=== PATIENT | male | born 1955 | race Caucasian/White ===

== ENCOUNTER 2018-01-01 08:34 | Inpatient (IN) | payer MEDICARE, MEDICAID ==
[~2018-01-01] VITALS: Ht 165.1 cm; Wt 60.0 kg
[~2018-01-01 08:34] MED LIST: DOCU-28 PO; POLY119P2 PO; TOPI200T16 PO; [UNRECOGNIZED DRUG - CODE] PO
[2018-01-01] MEDS ORDERED: LORazepam 2 mg/ml vial ONE (08:51)
[2018-01-01] MEDS ORDERED: normal saline 1000ML IV soln IVB ONE (08:55)
[2018-01-01] MEDS ORDERED: LORazepam 2 mg/ml vial IV ONE (08:55)
[2018-01-01 09:13] LABS: BASOPHILS % (AUTO) 0.2 % (0-1); EOSINOPHILS # (AUTO) 0.1 X10'3 (0-0.9); EOSINOPHILS % (AUTO) 1.6 % (0-6); HEMATOCRIT 47.2 % (42.0-52.0); HEMOGLOBIN 16.2 g/dl (14.0-17.9); LYMPHOCYTES # (AUTO) 4.5 X10'3 (1.1-4.8); LYMPHOCYTES % (AUTO) 49.5 % (21-51); MEAN CORPUSCULAR HGB CONC 34.3 % (33.0-36.5); MEAN CORPUSCULAR VOLUME 96.4 FL (78-98); MEAN PLATELET VOLUME 8.4 FL (7.4-10.4); MONOCYTES % (AUTO) 11.2 % (2-12); NEUTROPHILS # (AUTO) 3.4 X10'3 (1.8-7.7); NEUTROPHILS % (AUTO) 37.5 % (42-75); PLATELET COUNT 146 X10'3 (140-440); RED BLOOD COUNT 4.89 X10'6 (4.70-6.10); RED CELL DISTRIBUTION WIDTH 14.4 % (11.5-14.5)
[2018-01-01 09:23] LABS: PARTIAL THROMBOPLASTIN TIME 27 SECONDS (22-32); PROTHROMBIN TIME 10.4 SECONDS (9.0-12.0)
[2018-01-01 09:28] LABS: ALANINE AMINOTRANSFERASE 50 U/L (12-78); ALBUMIN/GLOBULIN RATIO 0.8 (1.1-1.5); ALKALINE PHOSPHATASE 64 IU/L (46-116); ANION GAP 8 (8-16); ASPARTATE AMINO TRANSFERASE 28 U/L (10-37); BILIRUBIN,TOTAL 0.3 MG/DL (0.1-1.0); BLOOD UREA NITROGEN 10 MG/DL (7-18); BUN/CREATININE RATIO 12.2 (5.4-32.0); CALCIUM 8.8 MG/DL (8.5-10.1); CHLORIDE 111 MMOL/L (99-107); CREATININE 0.82 MG/DL (0.60-1.10); GLUCOSE 125 MG/DL (70-104); POTASSIUM 4.1 MMOL/L (3.5-5.1); SODIUM 145 MMOL/L (135-145); TOTAL CARBON DIOXIDE 25.9 MMOL/L (24-32); TOTAL PROTEIN 6.9 G/DL (6.4-8.2); eGFR > 90 ML/MIN
[2018-01-01] MEDS ORDERED: mag hydrox/Alum hydrox/simeth 30ml oral suspension PO PRN (10:35)
[2018-01-01] MEDS ORDERED: ondansetron/PF 4mg/2ml inj IV PRN (10:35)
[2018-01-01] MEDS ORDERED: acetaminophen 325mg tablet PO PRN (10:35)
[2018-01-01] MEDS ORDERED: LORazepam 2 mg/ml vial IV PRN (10:35)
[2018-01-01] MEDS ORDERED: magnesium hydroxide 30ml (MOM) UD suspension PO PRN (10:35)
[2018-01-01 10:56] LABS: VALPROATE 56 UG/ML (50-100)
[2018-01-01 11:00] LABS: CLARITY,URINE CLEAR (Clear); COLOR,URINE YELLOW (Yellow); GLUCOSE, URINE NEGATIVE (Neg); KETONES,URINE NEGATIVE (Neg); LEUKOCYTE ESTERASE ,URINE NEGATIVE (Neg); NITRITES, URINE NEGATIVE (Neg); OCCULT BLOOD,URINE NEGATIVE (Neg); PROTEIN,URINE NEGATIVE (Neg)
[2018-01-01 11:07] LABS: UA COLLECTION TYPE STRAIGHT CATH
[2018-01-01] MEDS: divalproex sod 125mg sprinkle cap PO SCH ×2 (14:26→20:13)
[2018-01-01] MEDS ORDERED: MORPHINE 2MG in 2ml NS syringe IV PRN (14:50)
[2018-01-01] MEDS ORDERED: morphine 4 MG/ML inj SYRINge IV PRN (19:08)
[2018-01-01] MEDS: docusate sod 100mg capsule PO SCH (20:13)
[2018-01-01] MEDS: topiramate 100mg tablet PO SCH (20:13)
[2018-01-01 22:00] VITALS: BP 120/66
[2018-01-02 05:00] VITALS: BP 114/60
[2018-01-02] MEDS: polyethylene glycol 3350 17gm powd pack PO SCH (09:00)
[2018-01-02] MEDS: docusate sod 100mg capsule PO SCH ×2 (09:00→20:48)
[2018-01-02] MEDS: divalproex sod 125mg sprinkle cap PO SCH ×3 (09:00→20:48)
[2018-01-02 10:00] VITALS: BP 127/75
[2018-01-02 14:00] VITALS: BP 112/84
[2018-01-02 18:00] VITALS: BP 99/71
[2018-01-02] MEDS: topiramate 100mg tablet PO SCH (20:47)
[2018-01-02 22:00] VITALS: BP 120/66
[2018-01-03 05:00] VITALS: BP 118/96
[2018-01-03] MEDS: polyethylene glycol 3350 17gm powd pack PO SCH (09:05)
[2018-01-03] MEDS: divalproex sod 125mg sprinkle cap PO SCH ×3 (09:05→20:36)
[2018-01-03] MEDS: docusate sod 100mg capsule PO SCH ×2 (09:06→20:36)
[2018-01-03 10:00] VITALS: BP 131/80
[2018-01-03 18:30] VITALS: BP 104/61
[2018-01-03] MEDS: topiramate 100mg tablet PO SCH (20:35)
[2018-01-03 22:00] VITALS: BP 169/65
[2018-01-04 06:00] VITALS: BP 165/69
[2018-01-04] MEDS: polyethylene glycol 3350 17gm powd pack PO SCH (07:53)
[2018-01-04] MEDS: docusate sod 100mg capsule PO SCH (07:53)
[2018-01-04] MEDS: divalproex sod 125mg sprinkle cap PO SCH ×2 (07:57→12:58)
[2018-01-04 10:00] VITALS: BP 102/70
== END 2018-01-04 16:00 | DRG 101 ==
LOC: ER 08:34 → ED HOLD 10:32 → ORTHO 4S 19:10
PROVIDERS: ADMIT Internal Medicine; ATTEND Internal Medicine
DX: G40.909 Epilepsy, unspecified, not intractable, without status epilepticus (principal); F03.90 Unspecified dementia, unspecified severity, without behavioral disturbance, psychotic disturbance, mood disturbance, and anxiety; Z98.2 Presence of cerebrospinal fluid drainage device; Z88.8 Allergy status to other drugs, medicaments and biological substances; Z79.899 Other long term (current) drug therapy; Z87.820 Personal history of traumatic brain injury
CPT/HCPCS: 36415; 70450; 71045; 80053; 80164; 81003; 82948; 85025; 85610; 85730; 87070; 93005; 95816; 96361; 96374; 97162; 97530; 99285; A4353; J2060

== ENCOUNTER 2019-08-01 13:26 | Emergency (ER) | payer MEDICARE, MEDICAID ==
[~2019-08-01] VITALS: Ht 172.7 cm; Wt 80.0 kg
[~2019-08-01 13:26] MED LIST changes: +DIVA125C2 PO; -[UNRECOGNIZED DRUG - CODE] PO
[2019-08-01 14:43] LABS: EOSINOPHILS # (AUTO) 0.1 X10'3 (0-0.9); LYMPHOCYTES # (AUTO) 4.3 X10'3 (1.1-4.8); MONOCYTES # (AUTO) 0.5 X10'3 (0-0.9); NEUTROPHILS % (AUTO) 35.9 % (42-75); RED BLOOD COUNT 4.78 X10'6 (4.70-6.10); WHITE BLOOD COUNT 7.7 X10'3 (4.5-11.0)
[2019-08-01 14:45] LABS: BASOPHILS % (AUTO) 0.5 % (0-1); EOSINOPHILS % (AUTO) 1.1 % (0-6); HEMATOCRIT 44.9 % (42.0-52.0); HEMOGLOBIN 14.8 g/dl (14.0-17.9); MEAN CORPUSCULAR VOLUME 93.8 FL (78-98); MEAN PLATELET VOLUME 10.4 FL (7.4-10.4); MONOCYTES % (AUTO) 6.5 % (2-12); NEUTROPHILS # (AUTO) 2.7 X10'3 (1.8-7.7); PLATELET COUNT 183 X10'3 (140-440); RED CELL DISTRIBUTION WIDTH 14.1 % (11.5-14.5)
[2019-08-01 14:50] LABS: PARTIAL THROMBOPLASTIN TIME 25 SECONDS (22-32)
[2019-08-01 14:54] LABS: ALANINE AMINOTRANSFERASE 22 U/L (12-78); ALBUMIN 3.5 G/DL (3.4-5.0); ALKALINE PHOSPHATASE 102 IU/L (46-116); ANION GAP 10 (8-16); ASPARTATE AMINO TRANSFERASE 6 U/L (10-37); BILIRUBIN,TOTAL 0.3 MG/DL (0.1-1.0); BLOOD UREA NITROGEN 12 MG/DL (7-18); BUN/CREATININE RATIO 12.4 (5.4-32.0); CALCIUM 9.1 MG/DL (8.5-10.1); CHLORIDE 107 MMOL/L (99-107); CREATININE 0.97 MG/DL (0.60-1.10); GLUCOSE 423 MG/DL (70-104); SODIUM 141 MMOL/L (135-145); TOTAL CARBON DIOXIDE 24.4 MMOL/L (24-32); TOTAL PROTEIN 7.1 G/DL (6.4-8.2); eGFR 78 ML/MIN
[2019-08-01 14:56] LABS: TROPONIN I < 0.04 NG/ML (0.0-0.05)
[2019-08-01 15:04] LABS: ETHANOL < 0.010 GM/DL (0.0-0.010); POTASSIUM 4.2 MMOL/L (3.5-5.1)
[2019-08-01 15:32] LABS: TOTAL CELLS COUNTED 100
[2019-08-01 15:33] LABS: PLATELET ESTIMATE NORMAL
[2019-08-01 15:44] LABS: CLARITY,URINE CLEAR (Clear); COLOR,URINE YELLOW (Yellow); GLUCOSE, URINE >=1000 mg/dl (Neg); KETONES,URINE TRACE mg/dl (Neg); LEUKOCYTE ESTERASE ,URINE NEGATIVE (Neg); NITRITES, URINE NEGATIVE (Neg); OCCULT BLOOD,URINE NEGATIVE (Neg); PROTEIN,URINE NEGATIVE (Neg); UROBILINOGEN,URINE 0.2 E.U/dL (0.2-1.0)
[2019-08-01 15:46] LABS: UA COLLECTION TYPE VOIDED
[2019-08-01 15:48] LABS: AMORPHOUS PHOSPHATES 1+; BACTERIA,URINE NONE SEEN /HPF (Neg); MUCUS STRANDS NONE SEEN /LPF (Neg); RBC,URINE NONE SEEN /HPF (0-2)
[2019-08-01 15:49] LABS: SQUAMOUS EPITHELIAL CELL,UR FEW /LPF (FEW); WBC,URINE NONE SEEN /HPF (0-4)
[2019-08-01 16:01] LABS: URINE AMPHETAMINE SCREEN NEGATIVE (Neg); URINE BARBITUATE SCREEN NEGATIVE (Neg); URINE BENZODIAZEPINES SCREEN NEGATIVE (Neg); URINE CANNABINOID SCREEN NEGATIVE (Neg); URINE COCAINE SCREEN NEGATIVE (Neg); URINE METHADONE SCREEN NEGATIVE (Neg); URINE OPIATE SCREEN NEGATIVE (Neg); URINE PHENCYCLIDINE SCREEN NEGATIVE (Neg)
[2019-08-01 17:22] VITALS: BP 115/68
--- NOTE | 2019-08-01 17:42 | NUR ---
ATTIMPTED TO CALL [facility] TO GIVE REPORT NO ANSWER WILL TRY AGAIN
--- NOTE | 2019-08-01 18:03 | NUR ---
REPORT CALLED TO [facility] REPORT GIVEN TO ZAIDA
== END 2019-08-01 18:21 | disposition home or self-care (01) ==
LOC: ER 13:27
DX: N43.3 Hydrocele, unspecified (principal); F03.90 Unspecified dementia, unspecified severity, without behavioral disturbance, psychotic disturbance, mood disturbance, and anxiety; Z86.69 Personal history of other diseases of the nervous system and sense organs; Z98.890 Other specified postprocedural states; Z88.8 Allergy status to other drugs, medicaments and biological substances; Z91.048 Other nonmedicinal substance allergy status; Z79.899 Other long term (current) drug therapy
CPT/HCPCS: 36415; 71045; 76870; 80053; 80305; 80320; 81001; 82140; 84484; 85025; 85610; 85730; 93005; 99284

== ENCOUNTER 2020-02-17 08:54 | Inpatient (IN) | payer MEDICARE, OTHER ==
[~2020-02-17] VITALS: Ht 172.7 cm; Wt 80.0 kg
--- NOTE | 2020-02-17 09:51 | NUR ---
PT'S SISTER CALLED WHO IS HIS CONSERITOR FOR PT'S STATUS. INFORMED THAT PT HAS TAKEN A FALL THIS MORNING WITH A POSSIBLE HIP INJURY AND THAT HE WAS CURRENTLY IN XRAY. SISTER, MIRELA, REQUESTED TO BE CALLED WITH UPDATES NEEDED. PHONE # IS IN PT DATA
--- NOTE | 2020-02-17 10:21 | NUR ---
LISY LEHMAN CALLED WITH PT UPDATE. INFORMED THAT MRI ORDERED FOR FURTHER EVALUATION.
[2020-02-17] MEDS ORDERED: acetaminophen 325mg tablet PO PRN ×2 (12:55)
[2020-02-17] MEDS ORDERED: potassium Cl 20 mEq SR tablet PO PRN ×2 (12:55)
[2020-02-17] MEDS ORDERED: magnesium Cl slow-release 64mg tablet PO PRN (12:55)
[2020-02-17] MEDS ORDERED: magnesium 4gm in 100ml NS 100 ML IV PRN (12:55)
[2020-02-17] MEDS ORDERED: morphine 2 MG/ML inj. syringe IV PRN (12:55)
[2020-02-17] MEDS ORDERED: magnesium 2GM in 50ml NS 50 ML IV PRN (12:55)
[2020-02-17] MEDS ORDERED: mag hydrox/Alum hydrox/simeth 30ml oral suspension PO PRN (12:55)
[2020-02-17] MEDS ORDERED: magnesium hydroxide 30ml (MOM) UD suspension PO PRN (12:55)
[2020-02-17] MEDS ORDERED: potassium CL 10mEq/100ml bag 100 ML IV PRN ×2 (12:55)
[2020-02-17 12:56] LABS: BASOPHILS # (AUTO) 0.1 X10'3 (0-0.2); BASOPHILS % (AUTO) 0.4 % (0-1); EOSINOPHILS # (AUTO) 0.1 X10'3 (0-0.9); EOSINOPHILS % (AUTO) 0.5 % (0-6); HEMATOCRIT 42.2 % (42.0-52.0); HEMOGLOBIN 13.7 g/dl (14.0-17.9); LYMPHOCYTES # (AUTO) 2.5 X10'3 (1.1-4.8); LYMPHOCYTES % (AUTO) 16.7 % (21-51); MEAN CORPUSCULAR HEMOGLOBIN 30.1 PG (27.0-31.0); MEAN CORPUSCULAR HGB CONC 32.5 g/dL (33.0-36.5); MEAN CORPUSCULAR VOLUME 92.7 FL (78-98); MEAN PLATELET VOLUME 8.3 FL (7.4-10.4); MONOCYTES # (AUTO) 1.2 X10'3 (0-0.9); MONOCYTES % (AUTO) 7.9 % (2-12); NEUTROPHILS % (AUTO) 74.5 % (42-75); PLATELET COUNT 344 X10'3 (140-440); RED BLOOD COUNT 4.55 X10'6 (4.70-6.10); RED CELL DISTRIBUTION WIDTH 14.9 % (11.5-14.5); WHITE BLOOD COUNT 14.7 X10'3 (4.5-11.0)
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
[2020-02-17 13:15] LABS: ALANINE AMINOTRANSFERASE 16 U/L (12-78); ALBUMIN 2.5 G/DL (3.4-5.0); ALBUMIN/GLOBULIN RATIO 0.6 (1.1-1.5); ALKALINE PHOSPHATASE 55 IU/L (46-116); ANION GAP 7 (8-16); BILIRUBIN,TOTAL 0.3 MG/DL (0.1-1.0); BLOOD UREA NITROGEN 11 MG/DL (7-18); BUN/CREATININE RATIO 15.5 (5.4-32.0); CALCIUM 8.8 MG/DL (8.5-10.1); CHLORIDE 113 MMOL/L (99-107); CREATININE 0.71 MG/DL (0.60-1.10); GLUCOSE 88 MG/DL (70-104); SODIUM 146 MMOL/L (135-145); TOTAL CARBON DIOXIDE 26.5 MMOL/L (24-32); TOTAL PROTEIN 6.9 G/DL (6.4-8.2); eGFR > 90 ML/MIN
[2020-02-17 13:17] LABS: PARTIAL THROMBOPLASTIN TIME 31 SECONDS (22-32)
[2020-02-17] MEDS ORDERED: SERT100T10 PO (13:19)
[2020-02-17] MEDS ORDERED: ATOR40TA PO (13:19)
[2020-02-17] MEDS ORDERED: LEVE500T PO (13:19)
[2020-02-17] MEDS ORDERED: TOPI200T16 PO (13:19)
[2020-02-17] MEDS ORDERED: LEVO750T46 PO (13:19)
[2020-02-17] MEDS ORDERED: QUET50TA22 PO (13:19)
[2020-02-17] MEDS ORDERED: EMPA10TA PO (13:19)
[2020-02-17] MEDS ORDERED: FLO0.4C PO (13:19)
[2020-02-17 13:25] LABS: ASPARTATE AMINO TRANSFERASE 15 U/L (10-37); POTASSIUM 4.2 MMOL/L (3.5-5.1)
--- NOTE | 2020-02-17 13:51 | NUR ---
HUGH AT [facility] [id number], UPDATED HER ON THE PLAN OF CARE THIS FAR WITH PT. THAT HE WILL BE ADMITTED AND CT SHOWED PELVIC FRACTURE.
[2020-02-17] MEDS: normal saline 1000ml 1,000 ML IV SCH ×2 (14:12→21:33)
--- NOTE | 2020-02-17 14:52 | NUR ---
UNABLE TO COLLECT UA OR EKG PT BEING COMBATIVE WHEN TASKS ARE BEING PERFORMED
--- NOTE | 2020-02-17 15:54 | NUR ---
MIRELA IS SISTER [phone] , PLEASE CALL WITH UPDATES
--- NOTE | 2020-02-17 15:58 | NUR ---
TRIED TO CALL REPORT TO RN ON THE SURGICAL FLOOR, RN UNAVALIABLE WILL CALL BACK
--- NOTE | 2020-02-17 16:04 | NUR ---
Patient in room [facility]. I have received report from NATALIA NUÑEZ IN ER and had the opportunity to ask questions and assume patient care.
[2020-02-17] MEDS ORDERED: dextrose ORAL solution 15 GM/59 ML bottle PO PRN ×2 (16:15)
[2020-02-17] MEDS ORDERED: insulin Lispro (HumaLOG) vial - multi-dose SQ SCH (16:15)
[2020-02-17] MEDS ORDERED: dextrose 50%-water 50ml dispensing syringe IV PRN ×2 (16:15)
[2020-02-17] MEDS ORDERED: MESSAGE TO PHARMACY PO ONE (16:15)
[2020-02-17] MEDS ORDERED: glucagon, human recombinant 1mg kit SUBCUT PRN (16:15)
[2020-02-17 17:27] LABS: HEMOGLOBIN A1C 6.9 % (4.5-6.2)
--- NOTE | 2020-02-17 17:49 | NUR ---
PATIENT REFUSED TO HAVE BLOOD SUGAR TAKEN Addendum: 02/17/20 at 1750 by Ingrid Carey RN Amended: Links added.
[2020-02-17 18:00] VITALS: BP 126/73
--- NOTE | 2020-02-17 18:10 | NUR ---
Problems reprioritized. Patient report given, questions answered & plan of care reviewed with NATALIA SUTTON.
--- NOTE | 2020-02-17 18:35 | NUR ---
Patient in room [facility] 347. I have received report from Ingrid FISHER and had the opportunity to ask questions and assume patient care.
[2020-02-17] MEDS: K and/or MAG REPLACEMENT MC SCH (20:00)
--- NOTE | 2020-02-17 20:00 | NUR ---
Patient responds to "Sachin". Patient appears calmer, AOx1. EKG done, blood sugar checked and condom catheter placed on patient. Patient tolerated procedure well.
[2020-02-17] MEDS: QUEtiapine 25mg tablet PO SCH (20:02)
[2020-02-17] MEDS: HYDROcodone/acetaminophen 5mg/325mg tablet PO PRN (20:03)
[2020-02-17] MEDS: topiramate 100mg tablet PO SCH (20:03)
[2020-02-17] MEDS: insulin glargine (Lantus) pen - multi-dose SQ SCH (21:00)
[2020-02-17] MEDS ORDERED: temazepam 15mg capsule PO PRN (21:00)
--- NOTE | 2020-02-17 21:46 | NUR ---
Spoke with patient's Patricia (sister) [phone] who stated that she has co-conservatorship with his father Vishal for patient's medical and other needs except financial. Requested that Hospitalist calls her in the morning regarding plan of treatment. Will notify am nurse. Addendum: 02/18/20 at 0135 by Sabina Hussein RN Patient's father names Lacho and not Vishal.
[2020-02-17] MEDS: heparin, porcine 5000 units/ml vial SQ SCH (23:03)
[2020-02-18] VITALS (17 sets, daily range): BP systolic 109–142; BP diastolic 57–86
[2020-02-18] MEDS: normal saline 1000ml 1,000 ML IV SCH ×3 (00:53→21:33)
[2020-02-18] MEDS: HYDROcodone/acetaminophen 5mg/325mg tablet PO PRN (03:40)
[2020-02-18 05:53] LABS: BASOPHILS % (AUTO) 0.5 % (0-1); EOSINOPHILS # (AUTO) 0.2 X10'3 (0-0.9); EOSINOPHILS % (AUTO) 1.6 % (0-6); HEMATOCRIT 40.6 % (42.0-52.0); LYMPHOCYTES # (AUTO) 1.9 X10'3 (1.1-4.8); LYMPHOCYTES % (AUTO) 19.2 % (21-51); MEAN CORPUSCULAR HEMOGLOBIN 29.9 PG (27.0-31.0); MEAN CORPUSCULAR HGB CONC 32.1 g/dL (33.0-36.5); MEAN CORPUSCULAR VOLUME 93.1 FL (78-98); MEAN PLATELET VOLUME 8.9 FL (7.4-10.4); MONOCYTES # (AUTO) 1.1 X10'3 (0-0.9); MONOCYTES % (AUTO) 10.7 % (2-12); NEUTROPHILS # (AUTO) 6.8 X10'3 (1.8-7.7); PLATELET COUNT 315 X10'3 (140-440); RED BLOOD COUNT 4.37 X10'6 (4.70-6.10); RED CELL DISTRIBUTION WIDTH 14.6 % (11.5-14.5)
[2020-02-18 06:15] LABS: ALANINE AMINOTRANSFERASE 11 U/L (12-78); ALBUMIN 2.3 G/DL (3.4-5.0); ALBUMIN/GLOBULIN RATIO 0.6 (1.1-1.5); ALKALINE PHOSPHATASE 52 IU/L (46-116); ANION GAP 8 (8-16); ASPARTATE AMINO TRANSFERASE 10 U/L (10-37); BILIRUBIN,TOTAL 0.3 MG/DL (0.1-1.0); BLOOD UREA NITROGEN 10 MG/DL (7-18); BUN/CREATININE RATIO 15.4 (5.4-32.0); CALCIUM 8.4 MG/DL (8.5-10.1); CHLORIDE 115 MMOL/L (99-107); CREATININE 0.65 MG/DL (0.60-1.10); GLUCOSE 65 MG/DL (70-104); MAGNESIUM 2.2 MG/DL (1.5-2.4); POTASSIUM 3.4 MMOL/L (3.5-5.1); SODIUM 145 MMOL/L (135-145); TOTAL PROTEIN 6.4 G/DL (6.4-8.2); eGFR > 90 ML/MIN
--- NOTE | 2020-02-18 06:20 | NUR ---
Problems reprioritized. Patient report given, questions answered & plan of care reviewed with Susan FISHER.
--- NOTE | 2020-02-18 06:45 | NUR ---
Kiana from [facility] will fax patient's medication profile and will address to Susan FISHER.
[2020-02-18] MEDS: topiramate 100mg tablet PO SCH ×2 (08:00→20:05)
[2020-02-18] MEDS: heparin, porcine 5000 units/ml vial SQ SCH ×2 (08:00→20:00)
[2020-02-18] MEDS: K and/or MAG REPLACEMENT MC SCH ×2 (08:00→20:00)
[2020-02-18] MEDS: sertraline 50mg tablet PO SCH (08:00)
[2020-02-18] MEDS: atorvastatin 20mg tablet PO SCH (08:00)
[2020-02-18] MEDS: levetiracetam 250mg tablet PO SCH (08:00)
[2020-02-18] MEDS: QUEtiapine 25mg tablet PO SCH ×2 (08:00→20:05)
[2020-02-18] MEDS: tamsulosin 0.4mg capsule PO SCH (08:00)
[2020-02-18] MEDS: CefTRIAXone 2gm/D5W 50ml 50 ML IV SCH (08:55)
--- NOTE | 2020-02-18 10:00 | NUR ---
pt is refusing assessment. Breathing pattern appears normal, no apparent distress except for the pain in his hip from the fracture. Addendum: 02/18/20 at 1629 by Ruth Wadsworth RN Amended: Links added.
[2020-02-18] MEDS ORDERED: LORazepam 2 mg/ml vial IV PRN (10:45)
[2020-02-18] MEDS: morphine 2 MG/ML inj. syringe IV PRN ×2 (11:39→20:12)
--- NOTE | 2020-02-18 14:27 | NUR ---
Patient down to OR via gurney accompanied by x2 fabrication technician.
--- NOTE | 2020-02-18 14:39 | NUR ---
Malnutrition consult: Pt reports 2-13 lb wt loss with decreased appetite per malnutrition risk screen with RN. Pt currently documented as confused and A/O x 1 with hx dementia. Pt unable to provide any reliable hx per H&P. Pt with wt hx of 80 kg however is pt stated, current ER weight is 80 kg. Pt admit from [facility] for displaced left hip fracture s/p fall, currently NPO pending surgical treatment. Only documented decrease in muscle strength is to injured leg. Pt with no documented edema and is well developed/well nourished per ED report. Pt currently lacks a minimum of two criteria for malnutrition. Will continue to follow. Addendum: 02/18/20 at [address] Amended: Links added.
[2020-02-18] MEDS ORDERED: sevoflurane 250ml liquid IH ONE (15:02)
[2020-02-18] MEDS ORDERED: ceFAZolin 1000mg inj ONE (15:02)
[2020-02-18] MEDS ORDERED: propofol inj 20 ML IV ONE (15:06)
[2020-02-18] MEDS ORDERED: fentaNYL/PF 50MCG/1 ML 2ML syringe ONE (15:06)
[2020-02-18] MEDS ORDERED: morphine 4 MG/ML inj SYRINge IV PRN (15:45)
[2020-02-18] MEDS ORDERED: ondansetron/PF 4mg/2ml inj IV PRN (15:45)
[2020-02-18] MEDS ORDERED: ringers solution, lacted 1,000 ML IV SCH (15:45)
[2020-02-18] MEDS ORDERED: proCHLORperazine 10 MG/2 ml inj IV PRN (15:45)
[2020-02-18] MEDS ORDERED: morphine 2 MG/ML inj. syringe IV PRN (15:45)
[2020-02-18] MEDS ORDERED: meperidine/PF 25mg/ml syringe IV PRN ×3 (15:45)
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
--- NOTE | 2020-02-18 17:14 | NUR ---
PT NON-COMPLIANT W/CARE, PINCHING RN, SWEARING RIVER'S REPEATEDLY, APPEARS COMFORTABLE, Report called to receiving nurse. Transferred PT IN STABLE CONDITION via BED, NO Belongings, NURSES AIDE AT BEDSIDE TO RECEIVE PT, BLL, SIDE RAILS UP. Special Issues communicated to receiving nurse. YES. Addendum: 02/18/20 at 1730 by Sandra Dalton RN Amended: Links added.
[2020-02-18] MEDS: insulin glargine (Lantus) pen - multi-dose SQ SCH (20:16)
[2020-02-19] VITALS: BP 134/67
[2020-02-19] MEDS ORDERED: cefazolin/dext.iso 2gm/100ml 100 ML IV SCH
[2020-02-19] MEDS: morphine 2 MG/ML inj. syringe IV PRN ×3 (02:56→22:01)
[2020-02-19 05:02] LABS: BASOPHILS % (AUTO) 0.4 % (0-1); EOSINOPHILS # (AUTO) 0.2 X10'3 (0-0.9); EOSINOPHILS % (AUTO) 1.7 % (0-6); HEMATOCRIT 37.1 % (42.0-52.0); LYMPHOCYTES # (AUTO) 1.9 X10'3 (1.1-4.8); LYMPHOCYTES % (AUTO) 17.8 % (21-51); MEAN CORPUSCULAR HEMOGLOBIN 30.3 PG (27.0-31.0); MEAN CORPUSCULAR HGB CONC 32.3 g/dL (33.0-36.5); MEAN CORPUSCULAR VOLUME 93.6 FL (78-98); MEAN PLATELET VOLUME 8.8 FL (7.4-10.4); MONOCYTES # (AUTO) 1.2 X10'3 (0-0.9); MONOCYTES % (AUTO) 11.3 % (2-12); NEUTROPHILS # (AUTO) 7.1 X10'3 (1.8-7.7); NEUTROPHILS % (AUTO) 68.8 % (42-75); PLATELET COUNT 315 X10'3 (140-440); RED BLOOD COUNT 3.96 X10'6 (4.70-6.10); RED CELL DISTRIBUTION WIDTH 14.7 % (11.5-14.5); WHITE BLOOD COUNT 10.4 X10'3 (4.5-11.0)
[2020-02-19 05:29] LABS: ALANINE AMINOTRANSFERASE 8 U/L (12-78); ALBUMIN 2.1 G/DL (3.4-5.0); ALBUMIN/GLOBULIN RATIO 0.5 (1.1-1.5); ALKALINE PHOSPHATASE 45 IU/L (46-116); ANION GAP 15 (8-16); ASPARTATE AMINO TRANSFERASE 11 U/L (10-37); BILIRUBIN,TOTAL 0.3 MG/DL (0.1-1.0); BLOOD UREA NITROGEN 9 MG/DL (7-18); BUN/CREATININE RATIO 13.6 (5.4-32.0); CALCIUM 8.3 MG/DL (8.5-10.1); CHLORIDE 110 MMOL/L (99-107); CREATININE 0.66 MG/DL (0.60-1.10); GLUCOSE 68 MG/DL (70-104); POTASSIUM 3.8 MMOL/L (3.5-5.1); SODIUM 142 MMOL/L (135-145); TOTAL CARBON DIOXIDE 16.7 MMOL/L (24-32); eGFR > 90 ML/MIN
[2020-02-19] MEDS: normal saline 1000ml 1,000 ML IV SCH ×3 (05:33→22:23)
--- NOTE | 2020-02-19 06:00 | NUR ---
Patient in room [facility] 347. I have received report from NATALIA Jean-Baptiste and had the opportunity to ask questions and assume patient care.
[2020-02-19 07:00] VITALS: BP 129/67
[2020-02-19] MEDS: CefTRIAXone 2gm/D5W 50ml 50 ML IV SCH (07:21)
[2020-02-19] MEDS: heparin, porcine 5000 units/ml vial SQ SCH ×3 (08:00→19:26)
[2020-02-19] MEDS: K and/or MAG REPLACEMENT MC SCH ×2 (08:00→19:27)
[2020-02-19 08:28] VITALS: BP 96/71
[2020-02-19] MEDS: topiramate 100mg tablet PO SCH ×2 (08:34→19:19)
[2020-02-19] MEDS: levetiracetam 250mg tablet PO SCH (08:35)
[2020-02-19] MEDS: QUEtiapine 25mg tablet PO SCH ×2 (08:36→19:18)
[2020-02-19] MEDS: atorvastatin 20mg tablet PO SCH (08:36)
[2020-02-19] MEDS: tamsulosin 0.4mg capsule PO SCH (08:36)
[2020-02-19] MEDS: sertraline 50mg tablet PO SCH (08:36)
[2020-02-19 11:00] VITALS: BP 122/68
[2020-02-19] MEDS: enoxaparin 40mg/0.4ml syringe SUBCUT SCH (13:23)
[2020-02-19] MEDS ORDERED: magnesium hydroxide 30ml (MOM) UD suspension PO PRN (16:20)
--- NOTE | 2020-02-19 18:00 | NUR ---
Problems reprioritized. Patient report given, questions answered & plan of care reviewed with NATALIA Jean-Baptiste.
[2020-02-19] MEDS: docusate sod 100mg capsule PO SCH (19:18)
[2020-02-19] MEDS: lactobacillus rhamnosus 10,000 MMU CELLS/CAPSULE PO SCH (19:19)
[2020-02-19 19:58] VITALS: BP 126/77
--- NOTE | 2020-02-19 19:59 | NUR ---
adiel hill Addendum: 02/19/20 at 2000 by Turner Maldonado RN Amended: Links added.
[2020-02-19] MEDS: insulin glargine (Lantus) pen - multi-dose SQ SCH (21:00)
--- NOTE | 2020-02-20 00:06 | NUR ---
Problems reprioritized. Patient report given, questions answered & plan of care reviewed with Scott FISHER.
--- NOTE | 2020-02-20 00:25 | NUR ---
Patient in room [facility] 347. I have received report from ELVA FISHER and had the opportunity to ask questions and assume patient care.
[2020-02-20] MEDS: morphine 2 MG/ML inj. syringe IV PRN (04:33)
[2020-02-20] MEDS: normal saline 1000ml 1,000 ML IV SCH (05:40)
--- NOTE | 2020-02-20 06:30 | NUR ---
Problems reprioritized. Patient report given, questions answered & plan of care reviewed with CLEMENTE FISHER.
--- NOTE | 2020-02-20 06:41 | NUR ---
Patient in room [facility] 347. I have received report from yolanda sainz and had the opportunity to ask questions and assume patient care.
[2020-02-20 07:00] VITALS: BP 146/84
[2020-02-20 07:00] LABS: BASOPHILS % (AUTO) 0.5 % (0-1); EOSINOPHILS # (AUTO) 0.1 X10'3 (0-0.9); EOSINOPHILS % (AUTO) 1.3 % (0-6); HEMATOCRIT 36.1 % (42.0-52.0); HEMOGLOBIN 11.7 g/dl (14.0-17.9); LYMPHOCYTES # (AUTO) 1.8 X10'3 (1.1-4.8); LYMPHOCYTES % (AUTO) 19.4 % (21-51); MEAN CORPUSCULAR HEMOGLOBIN 30.6 PG (27.0-31.0); MEAN CORPUSCULAR HGB CONC 32.5 g/dL (33.0-36.5); MEAN CORPUSCULAR VOLUME 94.1 FL (78-98); MEAN PLATELET VOLUME 9.1 FL (7.4-10.4); MONOCYTES # (AUTO) 1.2 X10'3 (0-0.9); MONOCYTES % (AUTO) 12.9 % (2-12); NEUTROPHILS # (AUTO) 6.1 X10'3 (1.8-7.7); NEUTROPHILS % (AUTO) 65.9 % (42-75); PLATELET COUNT 278 X10'3 (140-440); RED BLOOD COUNT 3.84 X10'6 (4.70-6.10); RED CELL DISTRIBUTION WIDTH 14.8 % (11.5-14.5); WHITE BLOOD COUNT 9.2 X10'3 (4.5-11.0)
[2020-02-20 07:14] LABS: GLUCOSE 134 MG/DL (70-104); POTASSIUM 3.4 MMOL/L (3.5-5.1); SODIUM 143 MMOL/L (135-145)
[2020-02-20 07:15] LABS: ALANINE AMINOTRANSFERASE 9 U/L (12-78); ALBUMIN/GLOBULIN RATIO 0.5 (1.1-1.5); ALKALINE PHOSPHATASE 44 IU/L (46-116); ANION GAP 10 (8-16); ASPARTATE AMINO TRANSFERASE 9 U/L (10-37); BILIRUBIN,TOTAL 0.2 MG/DL (0.1-1.0); BLOOD UREA NITROGEN 8 MG/DL (7-18); BUN/CREATININE RATIO 13.3 (5.4-32.0); CALCIUM 8.3 MG/DL (8.5-10.1); CHLORIDE 114 MMOL/L (99-107); MAGNESIUM 2.3 MG/DL (1.5-2.4); TOTAL CARBON DIOXIDE 19.2 MMOL/L (24-32); TOTAL PROTEIN 5.9 G/DL (6.4-8.2); eGFR > 90 ML/MIN
[2020-02-20] MEDS: heparin, porcine 5000 units/ml vial SQ SCH ×2 (08:00→18:46)
[2020-02-20] MEDS: K and/or MAG REPLACEMENT MC SCH ×2 (08:00→19:29)
[2020-02-20] MEDS: QUEtiapine 25mg tablet PO SCH ×2 (08:40→19:28)
[2020-02-20] MEDS: atorvastatin 20mg tablet PO SCH (08:40)
[2020-02-20] MEDS: CefTRIAXone 2gm/D5W 50ml 50 ML IV SCH (08:40)
[2020-02-20] MEDS: docusate sod 100mg capsule PO SCH ×2 (08:40→19:28)
[2020-02-20] MEDS: tamsulosin 0.4mg capsule PO SCH (08:41)
[2020-02-20] MEDS: topiramate 100mg tablet PO SCH ×2 (08:41→19:28)
[2020-02-20] MEDS: sertraline 50mg tablet PO SCH (08:41)
[2020-02-20] MEDS: levetiracetam 250mg tablet PO SCH (08:41)
[2020-02-20] MEDS: lactobacillus rhamnosus 10,000 MMU CELLS/CAPSULE PO SCH ×2 (08:41→19:28)
[2020-02-20] MEDS: enoxaparin 40mg/0.4ml syringe SUBCUT SCH (08:42)
[2020-02-20] MEDS ORDERED: potassium Cl 20 mEq SR tablet PO STA (10:52)
--- NOTE | 2020-02-20 18:53 | NUR ---
PATIENT RESISTANT TO CARE MOST OF SHIFT, CONTINUES WITH UNCOUTH LANGUAGE PATIENT HAD TBI. ALL CARES GIVEN. PATIENT PULLED OUT IV. ORDER FROM DR GALLARDO TO NOT REPLACE. PATIENT IS TO GO TO TCU IN AM AT [facility]..
--- NOTE | 2020-02-20 18:56 | NUR ---
Problems reprioritized. Patient report given, questions answered & plan of care reviewed with JESSICA FISHER.
[2020-02-20] MEDS: insulin glargine (Lantus) pen - multi-dose SQ SCH (19:29)
--- NOTE | 2020-02-20 20:19 | NUR ---
Patient in room [facility] 347. I have received report from NATALIA Prabhakar and had the opportunity to ask questions and assume patient care. Addendum: 02/20/20 at 2020 by Lyndsay Donaldson RN Amended: Links added.
--- NOTE | 2020-02-20 20:26 | NUR ---
pt refused to have vitals taken Addendum: 02/20/20 at 2025 by Lyndsay Donaldson RN Amended: Links added.
[2020-02-20] MEDS: HYDROcodone/acetaminophen 10/325mg tab PO PRN (22:30)
--- NOTE | 2020-02-20 23:58 | NUR ---
pt. refused to have vitals taken Addendum: 02/20/20 at 7268 by Lyndsay Donaldson RN Amended: Links added.
[2020-02-21] MEDS: HYDROcodone/acetaminophen 10/325mg tab PO PRN ×2 (04:40→19:32)
--- NOTE | 2020-02-21 05:18 | NUR ---
pt refused to have labs drawn this am.
--- NOTE | 2020-02-21 06:07 | NUR ---
Problems reprioritized. Patient report given, questions answered & plan of care reviewed with NATALIA Quintero. Addendum: 02/21/20 at 0607 by Lyndsay Donaldson RN Amended: Links added.
--- NOTE | 2020-02-21 06:50 | NUR ---
Patient in room [facility] 347. I have received report from NATALIA IL and had the opportunity to ask questions and assume patient care.
[2020-02-21 08:00] VITALS: BP 134/77
[2020-02-21] MEDS: K and/or MAG REPLACEMENT MC SCH ×2 (08:00→20:00)
[2020-02-21] MEDS: heparin, porcine 5000 units/ml vial SQ SCH (08:00)
[2020-02-21] MEDS: enoxaparin 40mg/0.4ml syringe SUBCUT SCH (09:51)
[2020-02-21] MEDS: atorvastatin 20mg tablet PO SCH (09:51)
[2020-02-21] MEDS: tamsulosin 0.4mg capsule PO SCH (09:52)
[2020-02-21] MEDS: topiramate 100mg tablet PO SCH ×2 (09:52→19:32)
[2020-02-21] MEDS: sertraline 50mg tablet PO SCH (09:52)
[2020-02-21] MEDS: levetiracetam 250mg tablet PO SCH (09:52)
[2020-02-21] MEDS: lactobacillus rhamnosus 10,000 MMU CELLS/CAPSULE PO SCH ×2 (09:52→19:32)
[2020-02-21] MEDS: docusate sod 100mg capsule PO SCH ×2 (09:52→19:32)
[2020-02-21] MEDS: QUEtiapine 25mg tablet PO SCH ×2 (09:52→19:32)
[2020-02-21 11:00] VITALS: BP 99/70
--- NOTE | 2020-02-21 18:18 | NUR ---
Problems reprioritized. Patient report given, questions answered & plan of care reviewed with NATALIA LI.
[2020-02-21 20:00] VITALS: BP 132/72
[2020-02-21] MEDS: insulin glargine (Lantus) pen - multi-dose SQ SCH (21:00)
--- NOTE | 2020-02-21 21:34 | NUR ---
Patient in room [facility] 347. I have received report from NATALIA Quintero and had the opportunity to ask questions and assume patient care. Addendum: 02/21/20 at 2139 by Lyndsay Donaldson RN Amended: Links added.
--- NOTE | 2020-02-21 22:03 | NUR ---
vladislav pain scale. Addendum: 02/21/20 at 2204 by Lyndsay Donaldson RN Amended: Links added.
[2020-02-22 00:25] VITALS: BP 126/57
--- NOTE | 2020-02-22 04:39 | NUR ---
pt refused to have labs taken
[2020-02-22] MEDS: HYDROcodone/acetaminophen 10/325mg tab PO PRN ×3 (05:03→20:55)
--- NOTE | 2020-02-22 06:12 | NUR ---
Problems reprioritized. Patient report given, questions answered & plan of care reviewed with NATALIA Mcnamara. Addendum: 02/22/20 at 0612 by Lyndsay Donaldson RN Amended: Links added.
--- NOTE | 2020-02-22 06:36 | NUR ---
Patient in room [facility] 347. I have received report from NATALIA Umana and had the opportunity to ask questions and assume patient care.
[2020-02-22] MEDS: K and/or MAG REPLACEMENT MC SCH ×2 (08:00→20:00)
[2020-02-22] MEDS: tamsulosin 0.4mg capsule PO SCH (09:16)
[2020-02-22] MEDS: atorvastatin 20mg tablet PO SCH (09:17)
[2020-02-22] MEDS: levetiracetam 250mg tablet PO SCH (09:17)
[2020-02-22] MEDS: topiramate 100mg tablet PO SCH ×2 (09:17→20:55)
[2020-02-22] MEDS: lactobacillus rhamnosus 10,000 MMU CELLS/CAPSULE PO SCH ×2 (09:17→20:55)
[2020-02-22] MEDS: docusate sod 100mg capsule PO SCH ×2 (09:17→20:55)
[2020-02-22] MEDS: sertraline 50mg tablet PO SCH (09:18)
[2020-02-22] MEDS: QUEtiapine 25mg tablet PO SCH ×2 (09:18→20:54)
[2020-02-22] MEDS: enoxaparin 40mg/0.4ml syringe SUBCUT SCH (09:23)
[2020-02-22 11:00] VITALS: BP 113/71
--- NOTE | 2020-02-22 11:01 | NUR ---
Initial: Pt admit from [facility] for displaced left hip fracture s/p fall, pt now s/p surgical treatment. Pt on a regular diet with fluctuating PO intake, initially with 100% PO intake with steady trend down to 75% then 50% PO intake, however back up to 100% PO intake at dinner last night. Noted that pt documented to be resistive to care at times per RN notes. [facility] 02/20. Will continue to follow and monitor need for nutrition intervention. Recommendations: 1) Continue regular diet 2) Monitor BG levels and need for CHO controlled diet, currently well controlled 3) Monitor need for ONS/additional protein 4) Routine bowel care 5) Scaled wts per rx Addendum: 02/22/20 at [address] Amended: Links added.
[2020-02-22] MEDS ORDERED: diphenhydrAMINE 25mg capsule PO PRN (11:05)
--- NOTE | 2020-02-22 12:31 | NUR ---
Pt has D/C orders to be transfer to [facility]. application manager informed [facility] has refused pt at this time.
--- NOTE | 2020-02-22 18:53 | NUR ---
Problems reprioritized. Patient report given, questions answered & plan of care reviewed with NATALIA Sheehan. Pt. refused 1800 blood sugar check.
[2020-02-22 20:00] VITALS: BP 125/74
[2020-02-22] MEDS: insulin glargine (Lantus) pen - multi-dose SQ SCH (21:00)
--- NOTE | 2020-02-22 21:02 | NUR ---
pt refused finger stick for glucose check.
--- NOTE | 2020-02-22 21:29 | NUR ---
reported to NATALIA Herrera. pt took pm meds with ice cream.
--- NOTE | 2020-02-22 21:30 | NUR ---
Patient in room [facility]. I have received report from NATALIA Lehman and had the opportunity to ask questions and assume patient care.
--- NOTE | 2020-02-22 22:29 | NUR ---
Dressing to left hip changed; prior dressing was falling off. Patient tolerated well. Turned for skin check. Back side clear.
[2020-02-23] VITALS: BP 128/59
[2020-02-23] MEDS: HYDROcodone/acetaminophen 10/325mg tab PO PRN ×2 (02:14→14:44)
--- NOTE | 2020-02-23 04:43 | NUR ---
Patient refused labs
--- NOTE | 2020-02-23 06:00 | NUR ---
Patient in room [facility] 347. I have received report from Sharon FISHER and had the opportunity to ask questions and assume patient care.
--- NOTE | 2020-02-23 06:27 | NUR ---
Problems reprioritized. Patient report given, questions answered & plan of care reviewed with NATALIA Marion.
[2020-02-23 08:00] VITALS: BP 112/78
[2020-02-23] MEDS: K and/or MAG REPLACEMENT MC SCH ×2 (08:00→20:00)
[2020-02-23] MEDS: docusate sod 100mg capsule PO SCH ×2 (08:56→19:45)
[2020-02-23] MEDS: levetiracetam 250mg tablet PO SCH (08:56)
[2020-02-23] MEDS: tamsulosin 0.4mg capsule PO SCH (08:56)
[2020-02-23] MEDS: lactobacillus rhamnosus 10,000 MMU CELLS/CAPSULE PO SCH ×2 (08:56→19:45)
[2020-02-23] MEDS: QUEtiapine 25mg tablet PO SCH ×2 (08:57→19:45)
[2020-02-23] MEDS: sertraline 50mg tablet PO SCH (08:57)
[2020-02-23] MEDS: topiramate 100mg tablet PO SCH ×2 (08:57→19:45)
[2020-02-23] MEDS: enoxaparin 40mg/0.4ml syringe SUBCUT SCH (08:57)
[2020-02-23] MEDS: atorvastatin 20mg tablet PO SCH (08:57)
--- NOTE | 2020-02-23 11:00 | NUR ---
patient refused vital signs and accucheck this AM
--- NOTE | 2020-02-23 18:08 | NUR ---
Received report from primary care nurse Sanam RN. Patient is awake and alert on room air. In no apparent distress. Call light and items of frequent use within reach. Tab alarms on and audible.
--- NOTE | 2020-02-23 18:15 | NUR ---
Patient in room [facility] 347. I have received report from Gela FISHER and had the opportunity to ask questions and assume patient care.
--- NOTE | 2020-02-23 18:21 | NUR ---
Problems reprioritized. Patient report given, questions answered & plan of care reviewed with Gela FISHER.
--- NOTE | 2020-02-23 18:35 | NUR ---
Reported off to Patricia FISHER. Patient is awake and alert. In no apparent distress. Alarms on and audible.
[2020-02-23 19:00] VITALS: BP 130/80
[2020-02-23] MEDS: insulin glargine (Lantus) pen - multi-dose SQ SCH (21:00)
--- NOTE | 2020-02-23 22:25 | NUR ---
blood glucose done twice today Addendum: 02/23/20 at 2225 by Patricia Lorenzana RN Amended: Links added.
[2020-02-24] MEDS: HYDROcodone/acetaminophen 10/325mg tab PO PRN ×2 (00:54→09:30)
--- NOTE | 2020-02-24 06:34 | NUR ---
Problems reprioritized. Patient report given, questions answered & plan of care reviewed with Susan FISHER.
[2020-02-24] MEDS: tamsulosin 0.4mg capsule PO SCH (08:00)
[2020-02-24] MEDS: levetiracetam 250mg tablet PO SCH (08:00)
[2020-02-24] MEDS: QUEtiapine 25mg tablet PO SCH ×2 (08:00→21:16)
[2020-02-24] MEDS: lactobacillus rhamnosus 10,000 MMU CELLS/CAPSULE PO SCH ×2 (08:00→21:16)
[2020-02-24] MEDS: atorvastatin 20mg tablet PO SCH (08:00)
[2020-02-24] MEDS: sertraline 50mg tablet PO SCH (08:00)
[2020-02-24] MEDS: K and/or MAG REPLACEMENT MC SCH ×2 (08:00→18:39)
[2020-02-24] MEDS: enoxaparin 40mg/0.4ml syringe SUBCUT SCH (08:00)
[2020-02-24] MEDS: docusate sod 100mg capsule PO SCH ×2 (08:00→21:16)
[2020-02-24] MEDS: topiramate 100mg tablet PO SCH ×2 (08:00→21:23)
--- NOTE | 2020-02-24 08:00 | NUR ---
pt refused vitals
--- NOTE | 2020-02-24 08:00 | NUR ---
pt refused to have blood sugar checked Addendum: 02/24/20 at 1101 by Ruth Wadsworth RN Amended: Links added.
--- NOTE | 2020-02-24 09:45 | NUR ---
meds scanned and administered at bedside, meds did not save
[2020-02-24 10:00] VITALS: BP 119/81
[2020-02-24 18:00] VITALS: BP 112/75
[2020-02-24] MEDS: insulin glargine (Lantus) pen - multi-dose SQ SCH (21:00)
--- NOTE | 2020-02-25 00:39 | NUR ---
Pt refused midnight vital signs
--- NOTE | 2020-02-25 06:45 | NUR ---
Problems reprioritized. Patient report given, questions answered & plan of care reviewed with Susan Grier RN.
[2020-02-25] MEDS: atorvastatin 20mg tablet PO SCH (07:29)
[2020-02-25] MEDS: QUEtiapine 25mg tablet PO SCH ×2 (07:30→19:04)
[2020-02-25] MEDS: rivaroxaban 10mg tablet PO SCH (07:30)
[2020-02-25] MEDS: topiramate 100mg tablet PO SCH ×2 (07:30→19:05)
[2020-02-25] MEDS: docusate sod 100mg capsule PO SCH ×2 (07:30→19:05)
[2020-02-25] MEDS: levetiracetam 250mg tablet PO SCH (07:30)
[2020-02-25] MEDS: tamsulosin 0.4mg capsule PO SCH (07:30)
[2020-02-25] MEDS: lactobacillus rhamnosus 10,000 MMU CELLS/CAPSULE PO SCH ×2 (07:30→19:05)
[2020-02-25] MEDS: sertraline 50mg tablet PO SCH (07:30)
[2020-02-25] MEDS: HYDROcodone/acetaminophen 10/325mg tab PO PRN (07:31)
[2020-02-25 08:00] VITALS: BP 128/77
[2020-02-25] MEDS: K and/or MAG REPLACEMENT MC SCH ×2 (08:00→20:00)
[2020-02-25 11:00] VITALS: BP 121/69
[2020-02-25] MEDS: HYDROcodone/acetaminophen 5mg/325mg tablet PO PRN ×2 (12:30→18:49)
[2020-02-25] MEDS: albuterol 2.5 MG/3 ML nebule NEB SCH ×2 (14:56→20:00)
--- NOTE | 2020-02-25 18:00 | NUR ---
patient refused 1800 vital signs
--- NOTE | 2020-02-25 18:20 | NUR ---
Patient in room [facility] 347. I have received report from Susan FISHER and had the opportunity to ask questions and assume patient care.
[2020-02-25] MEDS: insulin glargine (Lantus) pen - multi-dose SQ SCH (20:15)
[2020-02-26] VITALS: BP 114/71
[2020-02-26] MEDS: HYDROcodone/acetaminophen 5mg/325mg tablet PO PRN ×2 (02:38→16:02)
[2020-02-26] MEDS: albuterol 2.5 MG/3 ML nebule NEB SCH ×4 (03:27→21:17)
--- NOTE | 2020-02-26 06:14 | NUR ---
Problems reprioritized. Patient report given, questions answered & plan of care reviewed with Sanam FISHER.
--- NOTE | 2020-02-26 06:34 | NUR ---
Patient in room [facility] 347. I have received report from Diamond FISHER and had the opportunity to ask questions and assume patient care.
[2020-02-26 08:00] VITALS: BP 125/75
[2020-02-26] MEDS: K and/or MAG REPLACEMENT MC SCH ×2 (08:00→19:04)
[2020-02-26] MEDS: docusate sod 100mg capsule PO SCH ×2 (08:00→20:00)
[2020-02-26] MEDS: lactobacillus rhamnosus 10,000 MMU CELLS/CAPSULE PO SCH ×2 (08:40→20:31)
[2020-02-26] MEDS: topiramate 100mg tablet PO SCH ×2 (08:40→20:27)
[2020-02-26] MEDS: QUEtiapine 25mg tablet PO SCH ×2 (08:40→20:27)
[2020-02-26] MEDS: atorvastatin 20mg tablet PO SCH (08:40)
[2020-02-26] MEDS: sertraline 50mg tablet PO SCH (08:40)
[2020-02-26] MEDS: levetiracetam 250mg tablet PO SCH (08:40)
[2020-02-26] MEDS: HYDROcodone/acetaminophen 10/325mg tab PO PRN ×2 (08:40→21:12)
[2020-02-26] MEDS: tamsulosin 0.4mg capsule PO SCH (08:40)
[2020-02-26 11:00] VITALS: BP 121/80
[2020-02-26] MEDS: rivaroxaban 10mg tablet PO SCH (16:02)
--- NOTE | 2020-02-26 18:28 | NUR ---
Problems reprioritized. Patient report given, questions answered & plan of care reviewed with Fernanda FISHER.
[2020-02-26] MEDS: LORazepam 1 MG tablet PO PRN (20:27)
[2020-02-26 21:00] VITALS: BP 129/76
[2020-02-26] MEDS: insulin glargine (Lantus) pen - multi-dose SQ SCH (21:00)
--- NOTE | 2020-02-27 01:00 | NUR ---
Patient refused his midnight vitals to be taken.
[2020-02-27] MEDS: albuterol 2.5 MG/3 ML nebule NEB SCH ×4 (02:00→20:00)
[2020-02-27] MEDS: HYDROcodone/acetaminophen 10/325mg tab PO PRN ×4 (03:34→20:36)
--- NOTE | 2020-02-27 06:00 | NUR ---
Patient in room [facility] 347. I have received report from NATALIA Michael and had the opportunity to ask questions and assume patient care.
[2020-02-27 07:00] VITALS: BP 132/73
[2020-02-27] MEDS: docusate sod 100mg capsule PO SCH ×2 (08:00→20:35)
[2020-02-27] MEDS: K and/or MAG REPLACEMENT MC SCH ×2 (08:00→20:00)
[2020-02-27] MEDS: QUEtiapine 25mg tablet PO SCH ×2 (08:36→20:36)
[2020-02-27] MEDS: sertraline 50mg tablet PO SCH (08:37)
[2020-02-27] MEDS: levetiracetam 250mg tablet PO SCH (08:37)
[2020-02-27] MEDS: atorvastatin 20mg tablet PO SCH (08:39)
[2020-02-27] MEDS: tamsulosin 0.4mg capsule PO SCH (08:40)
[2020-02-27] MEDS: lactobacillus rhamnosus 10,000 MMU CELLS/CAPSULE PO SCH ×2 (08:40→20:35)
[2020-02-27] MEDS: topiramate 100mg tablet PO SCH ×2 (08:46→20:35)
[2020-02-27] MEDS: rivaroxaban 10mg tablet PO SCH (08:54)
[2020-02-27 11:00] VITALS: BP 141/71
--- NOTE | 2020-02-27 14:47 | NUR ---
Reassessment: Pt PO 75-100% avg majority of meals since admit meeting needs. LBM 02/25. No nutrition concerns at this time. Will continue to monitor. Recommendations: 1) Continue regular diet 2) Monitor BG levels and need for CHO controlled diet, currently well controlled 3) Routine bowel care 4) Scaled wts Addendum: 02/27/20 at [address] Amended: Links added.
--- NOTE | 2020-02-27 18:20 | NUR ---
Problems reprioritized. Patient report given, questions answered & plan of care reviewed with NATALIA Quinn.
[2020-02-27 20:00] VITALS: BP 112/78
[2020-02-27] MEDS: insulin glargine (Lantus) pen - multi-dose SQ SCH (20:37)
--- NOTE | 2020-02-27 21:28 | NUR ---
Patient in room [facility] 347. I have received report from NATALIA Boyer and had the opportunity to ask questions and assume patient care. Addendum: 02/27/20 at 2129 by Lyndsay Donaldson RN Amended: Links added.
--- NOTE | 2020-02-27 22:55 | NUR ---
vladislav pain scale. medicated for pain. pt states yes. Addendum: 02/27/20 at 2256 by Lyndsay Donaldson RN Amended: Links added.
--- NOTE | 2020-02-28 00:12 | NUR ---
pt refused to have midnight vital signs taken.
[2020-02-28] MEDS: albuterol 2.5 MG/3 ML nebule NEB SCH ×4 (02:00→20:00)
[2020-02-28] MEDS: HYDROcodone/acetaminophen 10/325mg tab PO PRN ×3 (03:56→20:57)
[2020-02-28 06:00] VITALS: BP 129/80
--- NOTE | 2020-02-28 06:16 | NUR ---
Problems reprioritized. Patient report given, questions answered & plan of care reviewed with NATALIA Fitzgerald. Addendum: 02/28/20 at 0616 by Lyndsay Donaldson RN Amended: Links added.
--- NOTE | 2020-02-28 06:34 | NUR ---
Patient in room [facility] 347. I have received report from NATALIA Quinn and had the opportunity to ask questions and assume patient care.
[2020-02-28] MEDS: K and/or MAG REPLACEMENT MC SCH ×2 (06:56→20:00)
[2020-02-28] MEDS: QUEtiapine 25mg tablet PO SCH ×2 (07:32→20:56)
[2020-02-28] MEDS: topiramate 100mg tablet PO SCH ×2 (07:32→20:57)
[2020-02-28] MEDS: sertraline 50mg tablet PO SCH (07:32)
[2020-02-28] MEDS: docusate sod 100mg capsule PO SCH ×2 (07:33→20:57)
[2020-02-28] MEDS: levetiracetam 250mg tablet PO SCH (07:33)
[2020-02-28] MEDS: atorvastatin 20mg tablet PO SCH (07:33)
[2020-02-28] MEDS: lactobacillus rhamnosus 10,000 MMU CELLS/CAPSULE PO SCH ×2 (07:33→20:57)
[2020-02-28] MEDS: tamsulosin 0.4mg capsule PO SCH (07:33)
[2020-02-28] MEDS: rivaroxaban 10mg tablet PO SCH (07:34)
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
[2020-02-28 11:00] VITALS: BP 127/72
[2020-02-28 15:04] LABS: BASOPHILS # (AUTO) 0.1 X10'3 (0-0.2); BASOPHILS % (AUTO) 0.8 % (0-1); EOSINOPHILS # (AUTO) 0.1 X10'3 (0-0.9); EOSINOPHILS % (AUTO) 1.1 % (0-6); HEMATOCRIT 40.8 % (42.0-52.0); HEMOGLOBIN 13.3 g/dl (14.0-17.9); LYMPHOCYTES # (AUTO) 2.9 X10'3 (1.1-4.8); LYMPHOCYTES % (AUTO) 32.4 % (21-51); MEAN CORPUSCULAR HEMOGLOBIN 30.3 PG (27.0-31.0); MEAN CORPUSCULAR HGB CONC 32.7 g/dL (33.0-36.5); MEAN CORPUSCULAR VOLUME 92.8 FL (78-98); MEAN PLATELET VOLUME 9.4 FL (7.4-10.4); MONOCYTES # (AUTO) 0.6 X10'3 (0-0.9); MONOCYTES % (AUTO) 6.3 % (2-12); NEUTROPHILS # (AUTO) 5.3 X10'3 (1.8-7.7); NEUTROPHILS % (AUTO) 59.4 % (42-75); PLATELET COUNT 305 X10'3 (140-440); RED CELL DISTRIBUTION WIDTH 14.7 % (11.5-14.5); WHITE BLOOD COUNT 8.9 X10'3 (4.5-11.0)
[2020-02-28 15:08] LABS: ALBUMIN 2.6 G/DL (3.4-5.0); ANION GAP 8 (8-16); BLOOD UREA NITROGEN 18 MG/DL (7-18); BUN/CREATININE RATIO 21.7 (5.4-32.0); CALCIUM 8.7 MG/DL (8.5-10.1); CHLORIDE 107 MMOL/L (99-107); CREATININE 0.83 MG/DL (0.60-1.10); GLUCOSE 212 MG/DL (70-104); SODIUM 138 MMOL/L (135-145); TOTAL CARBON DIOXIDE 22.7 MMOL/L (24-32); eGFR > 90 ML/MIN
[2020-02-28 15:15] LABS: POTASSIUM 4.1 MMOL/L (3.5-5.1)
--- NOTE | 2020-02-28 18:07 | NUR ---
Student documentation: I have reviewed and agree with all interventions, assessments performed and documented by Manuel.
--- NOTE | 2020-02-28 18:11 | NUR ---
Problems reprioritized. Patient report given, questions answered & plan of care reviewed with NATALIA Quinn.
[2020-02-28 20:00] VITALS: BP 115/72
[2020-02-28] MEDS: LORazepam 1 MG tablet PO PRN (20:57)
[2020-02-28] MEDS: insulin glargine (Lantus) pen - multi-dose SQ SCH (21:00)
--- NOTE | 2020-02-29 00:12 | NUR ---
vladislav pain scale Addendum: 02/29/20 at 0012 by Lyndsay Donaldson RN Amended: Links added.
--- NOTE | 2020-02-29 00:16 | NUR ---
Patient in room [facility] 357. I have received report from NATALIA Fitzgerald and had the opportunity to ask questions and assume patient care. Addendum: 02/29/20 at 0024 by Lyndsay Donaldson RN Amended: Links added.
[2020-02-29] MEDS: HYDROcodone/acetaminophen 10/325mg tab PO PRN ×2 (00:45→05:09)
[2020-02-29] MEDS: albuterol 2.5 MG/3 ML nebule NEB SCH ×4 (02:00→19:39)
--- NOTE | 2020-02-29 06:02 | NUR ---
Problems reprioritized. Patient report given, questions answered & plan of care reviewed with NATALIA Walker. Addendum: 02/29/20 at 0602 by Lyndsay Donaldson RN Amended: Links added.
[2020-02-29 07:00] VITALS: BP 125/84
--- NOTE | 2020-02-29 07:01 | NUR ---
Patient in room [facility] 357A. I have received report from NATALIA Roth & Nubia pablo RN and had the opportunity to ask questions and assume patient care. Addendum: 02/29/20 at 0704 by Denise Warren RN Recieved report from NATALIA Delacruz not NATALIA Roth & Student
[2020-02-29] MEDS: K and/or MAG REPLACEMENT MC SCH ×2 (07:15→20:00)
[2020-02-29] MEDS: lactobacillus rhamnosus 10,000 MMU CELLS/CAPSULE PO SCH ×2 (09:08→20:53)
[2020-02-29] MEDS: docusate sod 100mg capsule PO SCH ×2 (09:08→20:53)
[2020-02-29] MEDS: tamsulosin 0.4mg capsule PO SCH (09:09)
[2020-02-29] MEDS: levetiracetam 250mg tablet PO SCH (09:10)
[2020-02-29] MEDS: atorvastatin 20mg tablet PO SCH (09:11)
[2020-02-29] MEDS: topiramate 100mg tablet PO SCH ×2 (09:11→20:53)
[2020-02-29] MEDS: QUEtiapine 25mg tablet PO SCH ×2 (09:11→20:53)
[2020-02-29] MEDS: sertraline 50mg tablet PO SCH (09:12)
[2020-02-29] MEDS: rivaroxaban 10mg tablet PO SCH (10:34)
[2020-02-29 11:00] VITALS: BP 121/68
--- NOTE | 2020-02-29 15:40 | NUR ---
PT WAS SITTING IN BEDSIDE CHAIR, ASSISTED THERE BY PHYSICAL THERAPY. AT 1530 PT WAS SITTING IN CHAIR WITH NO PROBLEMS. AT 1540 PT WAS FOUND ON FLOOR LAYING ON RIGHT SIDE, NO BLEEDING AND NO COMPLAINTS OF PAIN. PHYSICAL THERAPY WAS CALLED TO ASSIST PT BACK TO BED. PT WAS ROLLED ON BACK ONTO A BLANKED, 4 PHYSICAL THERAPY MEN LIFTED PT BACK INTO BED. GRANT PHYSICAL THERAPIST ASSESSED PT AND SUGGESTED AN XRAY. DR OBRIEN WAS ON THE FLOOR AND ASSESSED THE PT AND STATED PT "LOOKS OK" BUT TO GET AN XRAY TO JUST CHECK. ALL 4 BED RAILS WERE RAISED BECAUSE OF THE PREVIOUS TBI, AND TABS ALARM WAS PLACED ON PT
--- NOTE | 2020-02-29 16:28 | NUR ---
Page Sent PAGER ID: [phone] MESSAGE: BEV [id number]: MISSY CURRY [id number]...PT FELL TO GROUND FROM BEDSIDE CHAIR. PHYSICAL THERAPY ASSISTED IN GETTING PT BACK TO BED, SUGGESTED X-RAY. DR OBRIEN WAS ON FLOOR AND CHECKED PT, LOOKS OK, BUT WOULD STILL GET XRAY...I ORDERED XRAY.
--- NOTE | 2020-02-29 16:46 | NUR ---
CALLED AND LEFT MSG FOR DR HOLM RE: TANNER
--- NOTE | 2020-02-29 18:03 | NUR ---
REC'D CALL FROM DR HOLM, VIEWED XRAY AND STATED NO INJURY TO PT. ADVISED WHAT HAPPENED AND NEW PRECAUTIONS IN PLACE
--- NOTE | 2020-02-29 18:36 | NUR ---
Problems reprioritized. Patient report given, questions answered & plan of care reviewed with NATALIA MARTINEZ.
--- NOTE | 2020-02-29 18:38 | NUR ---
Patient in room [facility]. I have received report from NATALIA Walker and had the opportunity to ask questions and assume patient care. Addendum: 02/29/20 at 1838 by Angi Rivas RN Amended: Links added.
[2020-02-29 20:00] VITALS: BP 113/75
[2020-02-29] MEDS: insulin glargine (Lantus) pen - multi-dose SQ SCH (21:00)
[2020-03-01] MEDS: albuterol 2.5 MG/3 ML nebule NEB SCH ×4 (02:42→19:31)
[2020-03-01] MEDS: HYDROcodone/acetaminophen 10/325mg tab PO PRN (02:59)
--- NOTE | 2020-03-01 06:35 | NUR ---
Problems reprioritized. Patient report given, questions answered & plan of care reviewed with NATALIA Garcia. Addendum: 03/01/20 at 0636 by Angi Rivas RN Amended: Links added.
[2020-03-01 08:00] VITALS: BP 132/78
[2020-03-01] MEDS: K and/or MAG REPLACEMENT MC SCH ×2 (08:00→20:00)
[2020-03-01] MEDS: tamsulosin 0.4mg capsule PO SCH (08:25)
[2020-03-01] MEDS: sertraline 50mg tablet PO SCH (08:25)
[2020-03-01] MEDS: levetiracetam 250mg tablet PO SCH (08:26)
[2020-03-01] MEDS: docusate sod 100mg capsule PO SCH ×2 (08:26→20:31)
[2020-03-01] MEDS: atorvastatin 20mg tablet PO SCH (08:26)
[2020-03-01] MEDS: lactobacillus rhamnosus 10,000 MMU CELLS/CAPSULE PO SCH ×2 (08:26→20:00)
[2020-03-01] MEDS: rivaroxaban 10mg tablet PO SCH (08:26)
[2020-03-01] MEDS: topiramate 100mg tablet PO SCH ×2 (08:26→20:30)
[2020-03-01] MEDS: QUEtiapine 25mg tablet PO SCH ×2 (08:26→20:28)
--- NOTE | 2020-03-01 08:41 | NUR ---
patient refused svn tx Addendum: 03/01/20 at 0842 by Margarita Whitmore RT Amended: Links added.
[2020-03-01 11:48] VITALS: BP 133/79
[2020-03-01] MEDS: LORazepam 1 MG tablet PO PRN (13:53)
--- NOTE | 2020-03-01 16:07 | NUR ---
patient refused svn tx Addendum: 03/01/20 at 1608 by Margarita Whitmore RT Amended: Links added.
--- NOTE | 2020-03-01 18:13 | NUR ---
Problems reprioritized. Patient report given, questions answered & plan of care reviewed with NATALIA Michael.
--- NOTE | 2020-03-01 18:15 | NUR ---
RECEIVED REPORT FROM VLADIMIR FISHER AND ASSUMED PATIENT CARE. ORIENTING DARLENE FISHER.
[2020-03-01 20:00] VITALS: BP 133/73
[2020-03-01] MEDS: insulin glargine (Lantus) pen - multi-dose SQ SCH (21:00)
[2020-03-02] VITALS: BP 124/78
[2020-03-02] MEDS: albuterol 2.5 MG/3 ML nebule NEB SCH ×3 (02:44→19:40)
[2020-03-02 06:00] VITALS: BP 143/83
--- NOTE | 2020-03-02 06:59 | NUR ---
I have received report from NEWTON and had the opportunity to ask questions and assume patient care.
[2020-03-02] MEDS: K and/or MAG REPLACEMENT MC SCH ×2 (07:05→20:00)
[2020-03-02] MEDS: levetiracetam 250mg tablet PO SCH (08:17)
[2020-03-02] MEDS: QUEtiapine 25mg tablet PO SCH ×2 (08:18→19:56)
[2020-03-02] MEDS: lactobacillus rhamnosus 10,000 MMU CELLS/CAPSULE PO SCH ×2 (08:18→19:56)
[2020-03-02] MEDS: LORazepam 1 MG tablet PO PRN ×2 (08:18→13:48)
[2020-03-02] MEDS: topiramate 100mg tablet PO SCH ×2 (08:18→19:56)
[2020-03-02] MEDS: tamsulosin 0.4mg capsule PO SCH (08:18)
[2020-03-02] MEDS: atorvastatin 20mg tablet PO SCH (08:18)
[2020-03-02] MEDS: docusate sod 100mg capsule PO SCH ×2 (08:18→19:55)
[2020-03-02] MEDS: sertraline 50mg tablet PO SCH (08:18)
[2020-03-02] MEDS: rivaroxaban 10mg tablet PO SCH (08:31)
--- NOTE | 2020-03-02 09:28 | NUR ---
patient refused svn tx Addendum: 03/02/20 at 3275 by Margarita Whitmore RT Amended: Links added.
[2020-03-02] MEDS: HYDROcodone/acetaminophen 10/325mg tab PO PRN ×2 (10:28→22:14)
[2020-03-02 11:00] VITALS: BP 133/88
--- NOTE | 2020-03-02 12:12 | NUR ---
Reassessment: Pt continues with average 75-100% PO intake on regular diet meeting nutrient needs. Per dietary pt receiving grind all food, double protein BIDLD, and a vanilla shake BIDLD. LBM 03/02, having moderate stools and receiving routine bowel care. Pt awaiting placement per MD notes. No nutrition intervention warranted at this time. Will continue to follow. Recommendations: 1) Continue regular diet 2) Monitor BG levels and need for CHO controlled diet 3) Grind all food; double protein BIDLD; vanilla shake BIDLD 4) Routine bowel care 5) Scaled wts Addendum: 03/02/20 at [address] Amended: Links added.
[2020-03-02] MEDS: HYDROcodone/acetaminophen 5mg/325mg tablet PO PRN (13:48)
[2020-03-02 18:00] VITALS: BP 116/82
--- NOTE | 2020-03-02 18:15 | NUR ---
Patient in room [facility] 359. I have received report from Alvaro FISHER and had the opportunity to ask questions and assume patient care.
--- NOTE | 2020-03-02 18:21 | NUR ---
Problems reprioritized. Patient report given, questions answered & plan of care reviewed with
[2020-03-02] MEDS: insulin glargine (Lantus) pen - multi-dose SQ SCH (21:00)
[2020-03-03] MEDS: albuterol 2.5 MG/3 ML nebule NEB SCH ×4 (02:41→21:41)
--- NOTE | 2020-03-03 06:30 | NUR ---
Patient in room [facility] 359. I have received report from Patricia FISHER and had the opportunity to ask questions and assume patient care.
--- NOTE | 2020-03-03 06:39 | NUR ---
Problems reprioritized. Patient report given, questions answered & plan of care reviewed with Urbano FISHER.
[2020-03-03 07:00] VITALS: BP 155/79
--- NOTE | 2020-03-03 07:16 | NUR ---
Spot checked blood sugar, 137 mg/dl. Patient was not that cooperative with blood sugar checked. Patient got mad and cussing at me when I checked his blood sugar. Patient oriented to himself.
[2020-03-03] MEDS: QUEtiapine 25mg tablet PO SCH ×2 (07:49→20:20)
[2020-03-03] MEDS: docusate sod 100mg capsule PO SCH ×3 (07:49→20:20)
[2020-03-03] MEDS: HYDROcodone/acetaminophen 10/325mg tab PO PRN ×3 (07:49→20:19)
[2020-03-03] MEDS: sertraline 50mg tablet PO SCH (07:50)
[2020-03-03] MEDS: atorvastatin 20mg tablet PO SCH (07:50)
[2020-03-03] MEDS: tamsulosin 0.4mg capsule PO SCH (07:50)
[2020-03-03] MEDS: levetiracetam 250mg tablet PO SCH (07:50)
[2020-03-03] MEDS: topiramate 100mg tablet PO SCH ×2 (07:50→20:19)
[2020-03-03] MEDS: lactobacillus rhamnosus 10,000 MMU CELLS/CAPSULE PO SCH ×2 (07:50→20:19)
[2020-03-03] MEDS: rivaroxaban 10mg tablet PO SCH (07:50)
[2020-03-03] MEDS: K and/or MAG REPLACEMENT MC SCH ×2 (08:00→19:34)
[2020-03-03 11:00] VITALS: BP 156/84
--- NOTE | 2020-03-03 14:30 | NUR ---
patient became aggresive, (get out of here you b.... you sl.....) dc'd svn treatment
--- NOTE | 2020-03-03 18:15 | NUR ---
Patient in room [facility] 359. I have received report from NATALIA Clement and had the opportunity to ask questions and assume patient care.
--- NOTE | 2020-03-03 18:30 | NUR ---
Patient refused vital signs.
--- NOTE | 2020-03-03 18:35 | NUR ---
Problems reprioritized. Patient report given, questions answered & plan of care reviewed with Dona FISHER.
[2020-03-03] MEDS: insulin glargine (Lantus) pen - multi-dose SQ SCH (21:00)
--- NOTE | 2020-03-03 22:15 | NUR ---
Patient swallowed all medications except Colace. Pill retrieved and placed in trash bin.
--- NOTE | 2020-03-04 00:05 | NUR ---
Pt asleep during assessing vital signs. Will continue to perform hourly rounds and monitor patient.
[2020-03-04] MEDS: albuterol 2.5 MG/3 ML nebule NEB SCH ×3 (02:00→19:51)
--- NOTE | 2020-03-04 06:29 | NUR ---
Patient in room [facility] 359. I have received report from Dona FISHER and had the opportunity to ask questions and assume patient care.
--- NOTE | 2020-03-04 06:34 | NUR ---
Problems reprioritized. Patient report given, questions answered & plan of care reviewed with NATALIA Clement.
[2020-03-04 07:00] VITALS: BP 124/80
[2020-03-04] MEDS: K and/or MAG REPLACEMENT MC SCH ×2 (08:00→19:21)
[2020-03-04] MEDS: rivaroxaban 10mg tablet PO SCH (09:39)
[2020-03-04] MEDS: QUEtiapine 25mg tablet PO SCH ×2 (09:39→20:27)
[2020-03-04] MEDS: topiramate 100mg tablet PO SCH ×2 (09:39→20:37)
[2020-03-04] MEDS: levetiracetam 250mg tablet PO SCH (09:39)
[2020-03-04] MEDS: atorvastatin 20mg tablet PO SCH (09:40)
[2020-03-04] MEDS: docusate sod 100mg capsule PO SCH ×2 (09:40→20:27)
[2020-03-04] MEDS: sertraline 50mg tablet PO SCH (09:40)
[2020-03-04] MEDS: lactobacillus rhamnosus 10,000 MMU CELLS/CAPSULE PO SCH ×2 (09:40→20:27)
[2020-03-04] MEDS: tamsulosin 0.4mg capsule PO SCH (09:40)
[2020-03-04 11:00] VITALS: BP 122/80
[2020-03-04] MEDS: HYDROcodone/acetaminophen 10/325mg tab PO PRN (13:37)
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
--- NOTE | 2020-03-04 18:13 | NUR ---
Problems reprioritized. Patient report given, questions answered & plan of care reviewed with Dona FISHER.
[2020-03-04 18:15] VITALS: BP 133/76
--- NOTE | 2020-03-04 18:15 | NUR ---
Patient refused pulse ox reading upon performing vital signs.
--- NOTE | 2020-03-04 18:16 | NUR ---
Patient in room [facility] 359. I have received report from NATALIA Clement and had the opportunity to ask questions and assume patient care.
[2020-03-04] MEDS: insulin glargine (Lantus) pen - multi-dose SQ SCH (20:37)
--- NOTE | 2020-03-04 20:38 | NUR ---
Patient states that pt was in pain. Administered 1 tablet [place] 10/325mg however, pt spit out medication. Pt also spit out 1 of 2 tablets of Topamax 100 mg.
[2020-03-05 00:15] VITALS: BP 132/78
[2020-03-05] MEDS: HYDROcodone/acetaminophen 10/325mg tab PO PRN ×3 (01:23→20:49)
--- NOTE | 2020-03-05 01:30 | NUR ---
Pt states that he is in pain. Administered 1 tab [place] 10/325mg with applesauce, yogurt and water. Encouraged patient multiple times to swallow pill whole, but pt eventually spit pill out. Pill placed in trash bin. Will continue to monitor patient.
[2020-03-05] MEDS: albuterol 2.5 MG/3 ML nebule NEB SCH ×4 (02:00→20:00)
--- NOTE | 2020-03-05 06:27 | NUR ---
Patient in room [facility] 359. I have received report from Dona FISHER and had the opportunity to ask questions and assume patient care.
--- NOTE | 2020-03-05 06:28 | NUR ---
Problems reprioritized. Patient report given, questions answered & plan of care reviewed with NATALIA Benitez.
[2020-03-05 07:00] VITALS: BP 129/69
[2020-03-05] MEDS: K and/or MAG REPLACEMENT MC SCH ×2 (08:00→20:00)
[2020-03-05] MEDS: docusate sod 100mg capsule PO SCH ×2 (08:24→20:59)
[2020-03-05] MEDS: lactobacillus rhamnosus 10,000 MMU CELLS/CAPSULE PO SCH ×2 (08:24→20:36)
[2020-03-05] MEDS: QUEtiapine 25mg tablet PO SCH ×2 (08:25→20:35)
[2020-03-05] MEDS: atorvastatin 20mg tablet PO SCH (08:25)
[2020-03-05] MEDS: tamsulosin 0.4mg capsule PO SCH (08:25)
[2020-03-05] MEDS: rivaroxaban 10mg tablet PO SCH (08:25)
[2020-03-05] MEDS: sertraline 50mg tablet PO SCH (08:25)
[2020-03-05] MEDS: levetiracetam 250mg tablet PO SCH (08:25)
[2020-03-05] MEDS: topiramate 100mg tablet PO SCH ×2 (08:25→20:36)
[2020-03-05 11:33] VITALS: BP 143/94
[2020-03-05 11:42] VITALS: BP 120/66
--- NOTE | 2020-03-05 18:08 | NUR ---
Problems reprioritized. Patient report given, questions answered & plan of care reviewed with Joyce FISHER.
--- NOTE | 2020-03-05 18:38 | NUR ---
Patient in room [facility] 359. I have received report from Emmanuel FISHER and had the opportunity to ask questions and assume patient care.
[2020-03-05 20:00] VITALS: BP 123/69
[2020-03-05] MEDS: insulin glargine (Lantus) pen - multi-dose SQ SCH (21:00)
[2020-03-06] MEDS: albuterol 2.5 MG/3 ML nebule NEB SCH ×4 (02:00→19:43)
[2020-03-06] MEDS: HYDROcodone/acetaminophen 10/325mg tab PO PRN ×2 (04:11→13:30)
--- NOTE | 2020-03-06 06:12 | NUR ---
Problems reprioritized. Patient report given, questions answered & plan of care reviewed with REECE RN.
--- NOTE | 2020-03-06 07:03 | NUR ---
Patient in room [facility] 359. I have received report from Joyce FISHER and had the opportunity to ask questions and assume patient care.
[2020-03-06 08:00] VITALS: BP 117/68
[2020-03-06] MEDS: K and/or MAG REPLACEMENT MC SCH ×2 (08:00→20:00)
[2020-03-06] MEDS: topiramate 100mg tablet PO SCH ×2 (08:29→20:00)
[2020-03-06] MEDS: lactobacillus rhamnosus 10,000 MMU CELLS/CAPSULE PO SCH ×2 (08:29→20:00)
[2020-03-06] MEDS: atorvastatin 20mg tablet PO SCH (08:29)
[2020-03-06] MEDS: QUEtiapine 25mg tablet PO SCH ×2 (08:29→20:00)
[2020-03-06] MEDS: sertraline 50mg tablet PO SCH (08:29)
[2020-03-06] MEDS: tamsulosin 0.4mg capsule PO SCH (08:29)
[2020-03-06] MEDS: docusate sod 100mg capsule PO SCH ×2 (08:29→20:00)
[2020-03-06] MEDS: rivaroxaban 10mg tablet PO SCH (08:29)
[2020-03-06] MEDS: levetiracetam 250mg tablet PO SCH (08:29)
[2020-03-06 11:00] VITALS: BP 133/64
--- NOTE | 2020-03-06 18:15 | NUR ---
Patient in room [facility] 359. I have received report from Emmanuel FISHER and had the opportunity to ask questions and assume patient care.
--- NOTE | 2020-03-06 18:57 | NUR ---
Problems reprioritized. Patient report given, questions answered & plan of care reviewed with Patricia FISHER.
[2020-03-06 20:00] VITALS: BP 107/71
[2020-03-06] MEDS: insulin glargine (Lantus) pen - multi-dose SQ SCH (21:00)
[2020-03-07] MEDS: albuterol 2.5 MG/3 ML nebule NEB SCH ×2 (02:56→09:05)
[2020-03-07] MEDS: HYDROcodone/acetaminophen 10/325mg tab PO PRN ×3 (03:01→15:38)
--- NOTE | 2020-03-07 06:23 | NUR ---
Problems reprioritized. Patient report given, questions answered & plan of care reviewed with Bety FISHER.
[2020-03-07 07:00] VITALS: BP 132/78
[2020-03-07] MEDS: tamsulosin 0.4mg capsule PO SCH (07:15)
[2020-03-07] MEDS: atorvastatin 20mg tablet PO SCH (07:15)
[2020-03-07] MEDS: levetiracetam 250mg tablet PO SCH (07:15)
[2020-03-07] MEDS: QUEtiapine 25mg tablet PO SCH ×2 (07:15→19:40)
[2020-03-07] MEDS: topiramate 100mg tablet PO SCH ×2 (07:15→19:40)
[2020-03-07] MEDS: sertraline 50mg tablet PO SCH (07:16)
[2020-03-07] MEDS: docusate sod 100mg capsule PO SCH ×2 (07:16→19:46)
[2020-03-07] MEDS: lactobacillus rhamnosus 10,000 MMU CELLS/CAPSULE PO SCH ×2 (07:16→19:40)
[2020-03-07] MEDS: rivaroxaban 10mg tablet PO SCH (07:21)
--- NOTE | 2020-03-07 07:31 | NUR ---
Noted pt. is type 1 diabetic. Pt. refused BG to be taken.
[2020-03-07] MEDS: K and/or MAG REPLACEMENT MC SCH ×2 (08:00→20:00)
--- NOTE | 2020-03-07 09:06 | NUR ---
thai nance tx Addendum: 03/07/20 at 0906 by Margarita Whitmore RT Amended: Links added.
[2020-03-07] MEDS ORDERED: albuterol 2.5 MG/3 ML nebule NEB PRN (11:05)
[2020-03-07 12:12] VITALS: BP 107/74
[2020-03-07 12:21] VITALS: BP 107/74
--- NOTE | 2020-03-07 16:41 | NUR ---
REFUSED BG CHECK, MD AWARE BG CHECKS ARE BEING REFUSED.
--- NOTE | 2020-03-07 18:00 | NUR ---
Patient in room [facility]. I have received report from Bety FISHER and had the opportunity to ask questions and assume patient care.
--- NOTE | 2020-03-07 18:18 | NUR ---
Gave report to Patricia. Pt. comfortable in bed with no needs at this time.
--- NOTE | 2020-03-07 19:00 | NUR ---
Patient refused to have his blood sugar checked
[2020-03-07 20:00] VITALS: BP 134/75
[2020-03-07] MEDS: insulin glargine (Lantus) pen - multi-dose SQ SCH (21:00)
[2020-03-08 07:00] VITALS: BP 123/76
--- NOTE | 2020-03-08 07:28 | NUR ---
Attempted to take blood sugar 3 times. Pt. yelled "Don't do that!" and swatted RN. Repeated "I'm a no-gooder. I don't want to be taken care of." Reassured with no success.
[2020-03-08] MEDS: QUEtiapine 25mg tablet PO SCH ×2 (07:31→22:59)
[2020-03-08] MEDS: sertraline 50mg tablet PO SCH (07:31)
[2020-03-08] MEDS: topiramate 100mg tablet PO SCH ×2 (07:31→22:59)
[2020-03-08] MEDS: rivaroxaban 10mg tablet PO SCH (07:31)
[2020-03-08] MEDS: atorvastatin 20mg tablet PO SCH (07:31)
[2020-03-08] MEDS: lactobacillus rhamnosus 10,000 MMU CELLS/CAPSULE PO SCH ×2 (07:31→22:58)
[2020-03-08] MEDS: docusate sod 100mg capsule PO SCH ×2 (07:31→22:58)
[2020-03-08] MEDS: tamsulosin 0.4mg capsule PO SCH (07:32)
[2020-03-08] MEDS: levetiracetam 250mg tablet PO SCH (07:32)
[2020-03-08] MEDS: HYDROcodone/acetaminophen 10/325mg tab PO PRN ×2 (07:32→15:12)
[2020-03-08] MEDS: K and/or MAG REPLACEMENT MC SCH ×2 (08:00→20:00)
--- NOTE | 2020-03-08 08:00 | NUR ---
Pt. refused vital signs to be taken.
--- NOTE | 2020-03-08 12:00 | NUR ---
Pt. refused to have his BG checked.
[2020-03-08 14:30] VITALS: BP 113/73
--- NOTE | 2020-03-08 15:51 | NUR ---
patient to franklin me examine him Addendum: 03/08/20 at 1552 by Margarita Whitmore RT Amended: Links added.
--- NOTE | 2020-03-08 18:31 | NUR ---
Gave report to Estiven FISHER. Addendum: 03/08/20 at 1832 by Bety Lozano RN report to Edwar fisher
--- NOTE | 2020-03-08 19:30 | NUR ---
bronson ordered for his room mate; sitter in room to monitor pt's activity in preventing falls & to assist wit his needs Addendum: 03/09/20 at 0451 by Maria D Conner RN Amended: Links added.
[2020-03-08] MEDS: insulin glargine (Lantus) pen - multi-dose SQ SCH (21:00)
--- NOTE | 2020-03-08 21:00 | NUR ---
refuses accu check Addendum: 03/09/20 at 0452 by Maria D Conner RN Amended: Links added.
[2020-03-08 23:00] VITALS: BP 126/76
[2020-03-09] MEDS: HYDROcodone/acetaminophen 10/325mg tab PO PRN (01:31)
[2020-03-09] MEDS: topiramate 100mg tablet PO SCH ×2 (07:46→21:13)
[2020-03-09] MEDS: atorvastatin 20mg tablet PO SCH (07:46)
[2020-03-09] MEDS: levetiracetam 250mg tablet PO SCH (07:46)
[2020-03-09] MEDS: sertraline 50mg tablet PO SCH (07:46)
[2020-03-09] MEDS: QUEtiapine 25mg tablet PO SCH ×2 (07:47→21:13)
[2020-03-09] MEDS: K and/or MAG REPLACEMENT MC SCH ×2 (08:00→20:00)
[2020-03-09] MEDS: lactobacillus rhamnosus 10,000 MMU CELLS/CAPSULE PO SCH ×2 (08:00→21:13)
[2020-03-09] MEDS: docusate sod 100mg capsule PO SCH ×2 (08:00→21:13)
[2020-03-09] MEDS: tamsulosin 0.4mg capsule PO SCH (08:00)
--- NOTE | 2020-03-09 08:00 | NUR ---
Patient refusing accu check this am as well as am vitals.
[2020-03-09] MEDS: rivaroxaban 10mg tablet PO SCH (08:02)
--- NOTE | 2020-03-09 11:30 | NUR ---
Reassessment: Pt documented as A/O x 1 and resistive to care. Patient's PO intake fluctuates with some 50% PO intake and documented to have refused two meals since last RD assessment however overall pt averaging 75-100% PO intake while receiving double protein BIDLD meeting nutrient needs. Pt documented to be receiving total assistance with meals. LBM 03/08. No further nutrition intervention warranted at this time. Will continue to follow. Recommendations: 1) Continue regular diet; assist with meals 2) Monitor BG levels and need for CHO controlled diet 3) Double protein BIDLD; vanilla shake BIDLD 4) Routine bowel care 5) Scaled wts Addendum: 03/09/20 at [address] Amended: Links added.
[2020-03-09 12:00] VITALS: BP 107/65
--- NOTE | 2020-03-09 12:00 | NUR ---
Patient refusing blood sugar assessment. will continue to monitor.
--- NOTE | 2020-03-09 18:39 | NUR ---
Problems reprioritized. Patient report given, questions answered & plan of care reviewed with NATALIA Miranda. Addendum: 03/09/20 at 1840 by Ashley Bolton RN Elo Watts RN
--- NOTE | 2020-03-09 18:40 | NUR ---
Patient in room [facility]. I have received report from VLADIMIR FISHER and had the opportunity to ask questions and assume patient care.
[2020-03-09 20:00] VITALS: BP 99/53
[2020-03-09] MEDS: insulin glargine (Lantus) pen - multi-dose SQ SCH (21:00)
--- NOTE | 2020-03-10 06:30 | NUR ---
Problems reprioritized. Patient report given, questions answered & plan of care reviewed with KIMBERLEY FISHER.
--- NOTE | 2020-03-10 07:07 | NUR ---
Patient in room [facility]. I have received report from JOSELINE TREVIZO RN and had the opportunity to ask questions and assume patient care.
[2020-03-10] MEDS: docusate sod 100mg capsule PO SCH ×2 (08:00→21:28)
[2020-03-10] MEDS: lactobacillus rhamnosus 10,000 MMU CELLS/CAPSULE PO SCH ×2 (08:00→21:28)
[2020-03-10] MEDS: tamsulosin 0.4mg capsule PO SCH (08:00)
[2020-03-10] MEDS: atorvastatin 20mg tablet PO SCH (09:10)
[2020-03-10] MEDS: levetiracetam 250mg tablet PO SCH (09:10)
[2020-03-10] MEDS: rivaroxaban 10mg tablet PO SCH (09:10)
[2020-03-10] MEDS: sertraline 50mg tablet PO SCH (09:10)
[2020-03-10] MEDS: QUEtiapine 25mg tablet PO SCH ×2 (09:10→21:28)
[2020-03-10] MEDS: topiramate 100mg tablet PO SCH ×2 (09:11→21:28)
[2020-03-10] MEDS: HYDROcodone/acetaminophen 10/325mg tab PO PRN ×3 (09:11→21:29)
[2020-03-10 11:00] VITALS: BP 125/69
[2020-03-10 12:26] LABS: BASOPHILS % (AUTO) 0.5 % (0-1); EOSINOPHILS # (AUTO) 0.2 X10'3 (0-0.9); EOSINOPHILS % (AUTO) 2.7 % (0-6); HEMATOCRIT 41.9 % (42.0-52.0); HEMOGLOBIN 13.7 g/dl (14.0-17.9); LYMPHOCYTES # (AUTO) 2.4 X10'3 (1.1-4.8); LYMPHOCYTES % (AUTO) 32.6 % (21-51); MEAN CORPUSCULAR HEMOGLOBIN 29.7 PG (27.0-31.0); MEAN CORPUSCULAR HGB CONC 32.6 g/dL (33.0-36.5); MEAN CORPUSCULAR VOLUME 91.1 FL (78-98); MEAN PLATELET VOLUME 8.6 FL (7.4-10.4); MONOCYTES # (AUTO) 0.6 X10'3 (0-0.9); MONOCYTES % (AUTO) 8.3 % (2-12); NEUTROPHILS # (AUTO) 4.2 X10'3 (1.8-7.7); NEUTROPHILS % (AUTO) 55.9 % (42-75); PLATELET COUNT 321 X10'3 (140-440); RED CELL DISTRIBUTION WIDTH 14.2 % (11.5-14.5); WHITE BLOOD COUNT 7.4 X10'3 (4.5-11.0)
[2020-03-10 12:47] LABS: ALANINE AMINOTRANSFERASE 20 U/L (12-78); ALBUMIN/GLOBULIN RATIO 0.7 (1.1-1.5); ALKALINE PHOSPHATASE 137 IU/L (46-116); ANION GAP 10 (8-16); ASPARTATE AMINO TRANSFERASE 11 U/L (10-37); BILIRUBIN,TOTAL 0.2 MG/DL (0.1-1.0); BLOOD UREA NITROGEN 16 MG/DL (7-18); BUN/CREATININE RATIO 19.5 (5.4-32.0); CALCIUM 9.1 MG/DL (8.5-10.1); CHLORIDE 107 MMOL/L (99-107); CREATININE 0.82 MG/DL (0.60-1.10); GLUCOSE 192 MG/DL (70-104); POTASSIUM 3.4 MMOL/L (3.5-5.1); SODIUM 139 MMOL/L (135-145); TOTAL CARBON DIOXIDE 22.5 MMOL/L (24-32); TOTAL PROTEIN 7.4 G/DL (6.4-8.2); eGFR > 90 ML/MIN
[2020-03-10 18:00] VITALS: BP 137/80
--- NOTE | 2020-03-10 19:21 | NUR ---
Problems reprioritized. Patient report given, questions answered & plan of care reviewed with JOSELINE TREVIZO RN.
--- NOTE | 2020-03-10 19:22 | NUR ---
Patient in room [facility]. I have received report from KIMBERLEY FISHER and had the opportunity to ask questions and assume patient care.
[2020-03-10] MEDS: insulin glargine (Lantus) pen - multi-dose SQ SCH (21:00)
--- NOTE | 2020-03-11 06:30 | NUR ---
Problems reprioritized. Patient report given, questions answered & plan of care reviewed with KIMBERLEY FISHER.
--- NOTE | 2020-03-11 06:30 | NUR ---
Patient in room [facility]. I have received report from JOSELINE TREVIZO RN and had the opportunity to ask questions and assume patient care.
[2020-03-11 07:00] VITALS: BP 129/77
[2020-03-11] MEDS: docusate sod 100mg capsule PO SCH ×2 (08:00→09:20)
[2020-03-11] MEDS: tamsulosin 0.4mg capsule PO SCH ×2 (08:00→09:19)
[2020-03-11] MEDS: topiramate 100mg tablet PO SCH ×2 (09:19→21:21)
[2020-03-11] MEDS: sertraline 50mg tablet PO SCH (09:19)
[2020-03-11] MEDS: QUEtiapine 25mg tablet PO SCH ×2 (09:19→21:21)
[2020-03-11] MEDS: levetiracetam 250mg tablet PO SCH (09:20)
[2020-03-11] MEDS: rivaroxaban 10mg tablet PO SCH (09:21)
[2020-03-11] MEDS: lactobacillus rhamnosus 10,000 MMU CELLS/CAPSULE PO SCH ×2 (09:21→21:21)
[2020-03-11] MEDS: atorvastatin 20mg tablet PO SCH (09:21)
[2020-03-11] MEDS: HYDROcodone/acetaminophen 10/325mg tab PO PRN ×3 (09:22→21:21)
--- NOTE | 2020-03-11 09:33 | NUR ---
Partial dose of flomax administered. Pt chewed a portion of pill and spat rest on floor. Will continue to monitor.
[2020-03-11 11:00] VITALS: BP 119/83
[2020-03-11 18:00] VITALS: BP 118/73
--- NOTE | 2020-03-11 18:07 | NUR ---
Problems reprioritized. Patient report given, questions answered & plan of care reviewed with JOSELINE TREVIZO RN.
--- NOTE | 2020-03-11 18:30 | NUR ---
Patient in room [facility]. I have received report from KIMBERLEY FISHER and had the opportunity to ask questions and assume patient care.
[2020-03-11] MEDS: insulin glargine (Lantus) pen - multi-dose SQ SCH (21:00)
[2020-03-11] MEDS: docusate sodium 100mg/10ml UD cup PO SCH (21:22)
[2020-03-12 07:00] VITALS: BP 133/85
[2020-03-12] MEDS: lactobacillus rhamnosus 10,000 MMU CELLS/CAPSULE PO SCH ×2 (07:49→19:07)
[2020-03-12] MEDS: docusate sodium 100mg/10ml UD cup PO SCH ×2 (07:49→19:07)
[2020-03-12] MEDS: tamsulosin 0.4mg capsule PO SCH (07:49)
[2020-03-12] MEDS: levetiracetam 250mg tablet PO SCH (07:52)
[2020-03-12] MEDS: QUEtiapine 25mg tablet PO SCH ×2 (07:53→19:07)
[2020-03-12] MEDS: rivaroxaban 10mg tablet PO SCH (07:53)
[2020-03-12] MEDS: topiramate 100mg tablet PO SCH ×2 (07:53→19:07)
[2020-03-12] MEDS: sertraline 50mg tablet PO SCH (07:53)
[2020-03-12] MEDS: atorvastatin 20mg tablet PO SCH (07:53)
[2020-03-12] MEDS: HYDROcodone/acetaminophen 10/325mg tab PO PRN ×3 (07:54→19:08)
[2020-03-12 11:00] VITALS: BP 114/73
--- NOTE | 2020-03-12 18:32 | NUR ---
Problems reprioritized. Patient report given, questions answered & plan of care reviewed with NATALIA LI.
[2020-03-12 20:00] VITALS: BP 115/84
--- NOTE | 2020-03-12 20:33 | NUR ---
pt states "it hurts". Medicated prn for pain. Addendum: 03/12/20 at 2033 by Lyndsay Donaldson RN Amended: Links added.
--- NOTE | 2020-03-12 20:39 | NUR ---
Patient in room [facility]. I have received report from NATALIA Quintero and had the opportunity to ask questions and assume patient care. Addendum: 03/12/20 at 2038 by Lyndsay Donaldson RN Amended: Links added.
[2020-03-12] MEDS: insulin glargine (Lantus) pen - multi-dose SQ SCH (21:00)
--- NOTE | 2020-03-12 21:42 | NUR ---
vladislav pain scale. pt states yes when asked if in pain. Addendum: 03/12/20 at 2143 by Lyndsay Donaldson RN Amended: Links added.
[2020-03-13] MEDS: HYDROcodone/acetaminophen 10/325mg tab PO PRN ×2 (03:23→10:03)
--- NOTE | 2020-03-13 06:18 | NUR ---
Problems reprioritized. Patient report given, questions answered & plan of care reviewed with NATALIA Fitzgerald. Addendum: 03/13/20 at 0618 by Lyndsay Donaldson RN Amended: Links added.
--- NOTE | 2020-03-13 06:22 | NUR ---
Problems reprioritized. Patient report given, questions answered & plan of care reviewed with NATALIA Fitzgerald. Addendum: 03/13/20 at 0623 by Lyndsay Donaldson RN Amended: Links added.
--- NOTE | 2020-03-13 06:51 | NUR ---
Patient in room [facility]. I have received report from NATALIA Quinn and had the opportunity to ask questions and assume patient care.
[2020-03-13 07:00] VITALS: BP 130/70
[2020-03-13] MEDS: docusate sodium 100mg/10ml UD cup PO SCH ×2 (08:43→20:12)
[2020-03-13] MEDS: lactobacillus rhamnosus 10,000 MMU CELLS/CAPSULE PO SCH ×2 (08:43→20:12)
[2020-03-13] MEDS: tamsulosin 0.4mg capsule PO SCH (08:43)
[2020-03-13] MEDS: levetiracetam 250mg tablet PO SCH (08:44)
[2020-03-13] MEDS: QUEtiapine 25mg tablet PO SCH ×2 (08:44→20:12)
[2020-03-13] MEDS: sertraline 50mg tablet PO SCH (08:44)
[2020-03-13] MEDS: rivaroxaban 10mg tablet PO SCH (08:44)
[2020-03-13] MEDS: atorvastatin 20mg tablet PO SCH (08:44)
[2020-03-13] MEDS: topiramate 100mg tablet PO SCH ×2 (08:44→20:13)
[2020-03-13 11:00] VITALS: BP 98/71
--- NOTE | 2020-03-13 18:59 | NUR ---
Problems reprioritized. Patient report given, questions answered & plan of care reviewed with NATALIA Quinn.
--- NOTE | 2020-03-13 19:57 | NUR ---
Patient would not let me take his vitals. He pointed his finger at me and said, "no. "Patient is in no respiratory distress at this time. Lungs are clear bilaterally.
[2020-03-13 20:00] VITALS: BP 126/74
[2020-03-13] MEDS: insulin glargine (Lantus) pen - multi-dose SQ SCH (21:00)
--- NOTE | 2020-03-13 22:08 | NUR ---
Patient in room [facility]. I have received report from NATALIA Fitzgerald and had the opportunity to ask questions and assume patient care. Addendum: 03/13/20 at 2210 by Lyndsay Donaldson RN Amended: Links added.
--- NOTE | 2020-03-13 23:13 | NUR ---
Problems reprioritized. Patient report given, questions answered & plan of care reviewed with NATALIA Garvin. Addendum: 03/13/20 at 2314 by Lyndsay Donaldson RN Amended: Links added.
[2020-03-14 00:28] VITALS: BP 125/69
--- NOTE | 2020-03-14 00:45 | NUR ---
PT ARRIVED TO 4010B FROM SURG FLOOR. RECEIVED REPORT FROM NATALIA LOPEZ PRIOR TO PT'S ARRIVAL. VSS.
[2020-03-14 01:13] VITALS: BP 130/75
[2020-03-14] MEDS: HYDROcodone/acetaminophen 10/325mg tab PO PRN ×2 (03:15→20:26)
[2020-03-14 06:00] VITALS: BP 135/82
--- NOTE | 2020-03-14 06:30 | NUR ---
Problems reprioritized. Patient report given, questions answered & plan of care reviewed with NATALIA PABLO.
--- NOTE | 2020-03-14 06:42 | NUR ---
Patient in room [facility] 4010[facility]. I have received report from NATALIA ALEXANDER and had the opportunity to ask questions and assume patient care.
[2020-03-14] MEDS: lactobacillus rhamnosus 10,000 MMU CELLS/CAPSULE PO SCH ×2 (08:34→20:00)
[2020-03-14] MEDS: tamsulosin 0.4mg capsule PO SCH (08:35)
[2020-03-14] MEDS: levetiracetam 250mg tablet PO SCH (08:36)
[2020-03-14] MEDS: topiramate 100mg tablet PO SCH ×2 (08:37→20:00)
[2020-03-14] MEDS: sertraline 50mg tablet PO SCH (08:37)
[2020-03-14] MEDS: QUEtiapine 25mg tablet PO SCH ×2 (08:37→20:14)
[2020-03-14] MEDS: atorvastatin 20mg tablet PO SCH (08:41)
[2020-03-14] MEDS: docusate sodium 100mg/10ml UD cup PO SCH ×2 (08:42→20:25)
[2020-03-14] MEDS: rivaroxaban 10mg tablet PO SCH (09:41)
[2020-03-14 10:00] VITALS: BP 118/70
--- NOTE | 2020-03-14 18:28 | NUR ---
Problems reprioritized. Patient report given, questions answered & plan of care reviewed with emeli denise.
[2020-03-14] MEDS: insulin glargine (Lantus) pen - multi-dose SQ SCH (21:00)
[2020-03-14 22:00] VITALS: BP 127/74
[2020-03-15 06:00] VITALS: BP 123/79
--- NOTE | 2020-03-15 07:03 | NUR ---
Patient in room [facility] 4010[facility]. I have received report from NATALIA Harrington and had the opportunity to ask questions and assume patient care.
[2020-03-15] MEDS: levetiracetam 250mg tablet PO SCH (08:31)
[2020-03-15] MEDS: topiramate 100mg tablet PO SCH ×2 (08:31→20:00)
[2020-03-15] MEDS: sertraline 50mg tablet PO SCH (08:32)
[2020-03-15] MEDS: atorvastatin 20mg tablet PO SCH (08:32)
[2020-03-15] MEDS: QUEtiapine 25mg tablet PO SCH ×2 (08:32→22:19)
[2020-03-15] MEDS: rivaroxaban 10mg tablet PO SCH (08:35)
[2020-03-15] MEDS: lactobacillus rhamnosus 10,000 MMU CELLS/CAPSULE PO SCH ×2 (08:37→20:00)
[2020-03-15] MEDS: docusate sodium 100mg/10ml UD cup PO SCH ×2 (08:37→20:00)
[2020-03-15] MEDS: tamsulosin 0.4mg capsule PO SCH (08:38)
[2020-03-15 17:00] VITALS: BP 146/80
[2020-03-15 17:12] VITALS: BP 146/80
--- NOTE | 2020-03-15 18:14 | NUR ---
pt has L scrotal swelling. no redness, Dr Bauer advised. Will continue to monitor.
--- NOTE | 2020-03-15 18:16 | NUR ---
Problems reprioritized. Patient report given, questions answered & plan of care reviewed with NATALIA Graham.
[2020-03-15] MEDS: insulin glargine (Lantus) pen - multi-dose SQ SCH (21:00)
[2020-03-15] MEDS: HYDROcodone/acetaminophen 10/325mg tab PO PRN (22:20)
--- NOTE | 2020-03-16 06:00 | NUR ---
REFUSED 0500 VS
--- NOTE | 2020-03-16 06:00 | NUR ---
Patient in room [facility] 4010. I have received report from DARLENE FISHER and had the opportunity to ask questions and assume patient care.
--- NOTE | 2020-03-16 06:16 | NUR ---
Problems reprioritized. Patient report given, questions answered & plan of care reviewed with Azra FISHER.
[2020-03-16] MEDS: tamsulosin 0.4mg capsule PO SCH (08:38)
[2020-03-16] MEDS: docusate sodium 100mg/10ml UD cup PO SCH ×2 (08:38→20:00)
[2020-03-16] MEDS: topiramate 100mg tablet PO SCH ×2 (08:38→20:56)
[2020-03-16] MEDS: atorvastatin 20mg tablet PO SCH (08:38)
[2020-03-16] MEDS: QUEtiapine 25mg tablet PO SCH ×2 (08:38→20:55)
[2020-03-16] MEDS: levetiracetam 250mg tablet PO SCH (08:38)
[2020-03-16] MEDS: lactobacillus rhamnosus 10,000 MMU CELLS/CAPSULE PO SCH ×2 (08:38→20:56)
[2020-03-16] MEDS: sertraline 50mg tablet PO SCH (08:39)
[2020-03-16] MEDS: rivaroxaban 10mg tablet PO SCH (08:39)
[2020-03-16 10:00] VITALS: BP 136/79
--- NOTE | 2020-03-16 12:34 | NUR ---
Reassessment: Pt ALOC AOx2 noted to be repeatedly spitting per EMR PO fluctuating at least 75% avg meals up to 100% at times meeting needs. LBM 6/3 receiving routine colace. LIZABETH d/w RN regarding carb controlled diet addition if MD agreeable given GLU 190 at this time w/ adequate PO hx. Pt previously receiving vanilla shake BIDLD; ensure high protein more appropriate BIDBD at this time given elevated GLU A1C 6.9; MD notified of recommendations. Dietary notified to cancel vanilla shake. Will continue to monitor. Recommendations: 1) advance diet as medically indicated to carb controlled 2) Double protein BIDLD; ensure high protein BIDBD 3) Routine bowel care 4) Scaled wts Addendum: 03/16/20 at [address] Amended: Links added.
[2020-03-16] MEDS: HYDROcodone/acetaminophen 10/325mg tab PO PRN (13:40)
--- NOTE | 2020-03-16 14:35 | NUR ---
COVERING FOR BLAYNE RN, PT CAME TO ME TO LET ME KNOW THE PATIENTS SUTURES WERE STILL IN HIS LEFT HIP. CHEN AZARP NOTIFIED, STATED TO PULL THE SUTURES OUT. UNSUCCESSFUL AT TAKING ALL FOUR SUTURES OUT, ORDERS RECEIVED FOR ANTIBIOTIC CREME, AND FOR DR. HOLM TO LOOK AT THE SUTURES TOMORROW.
--- NOTE | 2020-03-16 15:07 | NUR ---
LEG WAS ICED AND THREE OF THE FOUR SUTURES WHERE REMOVED. CHEN TAVAREZ NOTIFIED.
[2020-03-16] MEDS: lactose-reduced food (Ensure High Protein) 237ml bottle PO SCH ×2 (17:30→20:23)
[2020-03-16 18:00] VITALS: BP 116/60
--- NOTE | 2020-03-16 18:05 | NUR ---
Problems reprioritized. Patient report given, questions answered & plan of care reviewed with HERLINDA FISHER.
[2020-03-16] MEDS: insulin glargine (Lantus) pen - multi-dose SQ SCH (20:05)
[2020-03-16] MEDS: neomy sulf/bacitrac zn/polymixin b oint 14.2 gm tube TP SCH (20:56)
--- NOTE | 2020-03-16 23:04 | NUR ---
patient refused VS at 2200
[2020-03-17] MEDS: HYDROcodone/acetaminophen 10/325mg tab PO PRN ×3 (05:25→15:17)
--- NOTE | 2020-03-17 06:00 | NUR ---
REFUSED 0500 VS
--- NOTE | 2020-03-17 06:03 | NUR ---
Patient in room [facility] 4010. I have received report from HERLINDA FISHER and had the opportunity to ask questions and assume patient care.
--- NOTE | 2020-03-17 06:14 | NUR ---
Problems reprioritized. Patient report given, questions answered & plan of care reviewed with NATALIA Oquendo.
[2020-03-17] MEDS: tamsulosin 0.4mg capsule PO SCH (07:59)
[2020-03-17] MEDS: QUEtiapine 25mg tablet PO SCH ×2 (07:59→19:26)
[2020-03-17] MEDS: sertraline 50mg tablet PO SCH (07:59)
[2020-03-17] MEDS: atorvastatin 20mg tablet PO SCH (07:59)
[2020-03-17] MEDS: rivaroxaban 10mg tablet PO SCH (08:00)
[2020-03-17] MEDS: lactobacillus rhamnosus 10,000 MMU CELLS/CAPSULE PO SCH ×2 (08:00→19:26)
[2020-03-17] MEDS: topiramate 100mg tablet PO SCH ×2 (08:00→19:26)
[2020-03-17] MEDS: levetiracetam 250mg tablet PO SCH (08:00)
[2020-03-17] MEDS: docusate sodium 100mg/10ml UD cup PO SCH ×2 (08:00→19:26)
[2020-03-17] MEDS: neomy sulf/bacitrac zn/polymixin b oint 14.2 gm tube TP SCH ×3 (08:02→19:27)
[2020-03-17 10:00] VITALS: BP 107/60
[2020-03-17] MEDS: lactose-reduced food (Ensure High Protein) 237ml bottle PO SCH (17:30)
[2020-03-17 18:00] VITALS: BP 108/79
--- NOTE | 2020-03-17 18:03 | NUR ---
Problems reprioritized. Patient report given, questions answered & plan of care reviewed with HERLINDA FISHER.
[2020-03-17] MEDS: insulin glargine (Lantus) pen - multi-dose SQ SCH (19:23)
[2020-03-17 22:00] VITALS: BP 119/71
[2020-03-18 06:00] VITALS: BP 127/77
--- NOTE | 2020-03-18 06:18 | NUR ---
Problems reprioritized. Patient report given, questions answered & plan of care reviewed with NATALIA Oquendo.
[2020-03-18] MEDS: docusate sodium 100mg/10ml UD cup PO SCH (08:03)
[2020-03-18] MEDS: levetiracetam 250mg tablet PO SCH (08:03)
[2020-03-18] MEDS: atorvastatin 20mg tablet PO SCH (08:03)
[2020-03-18] MEDS: tamsulosin 0.4mg capsule PO SCH (08:03)
[2020-03-18] MEDS: lactobacillus rhamnosus 10,000 MMU CELLS/CAPSULE PO SCH ×2 (08:03→20:20)
[2020-03-18] MEDS: sertraline 50mg tablet PO SCH (08:04)
[2020-03-18] MEDS: rivaroxaban 10mg tablet PO SCH (08:04)
[2020-03-18] MEDS: topiramate 100mg tablet PO SCH ×2 (08:04→20:19)
[2020-03-18] MEDS: QUEtiapine 25mg tablet PO SCH ×2 (08:04→20:19)
[2020-03-18] MEDS: HYDROcodone/acetaminophen 10/325mg tab PO PRN (08:05)
[2020-03-18] MEDS: lactose-reduced food (Ensure High Protein) 237ml bottle PO SCH ×2 (08:08→18:00)
[2020-03-18] MEDS: neomy sulf/bacitrac zn/polymixin b oint 14.2 gm tube TP SCH ×3 (08:08→20:21)
--- NOTE | 2020-03-18 14:30 | NUR ---
TRANSFERRED PATIENT TO ROOM 345A WITH ALL BELONGINGS IN POSSESSION.
[2020-03-18 14:35] VITALS: BP 111/73
[2020-03-18] MEDS: LORazepam 1 MG tablet PO PRN (17:03)
--- NOTE | 2020-03-18 18:00 | NUR ---
Problems reprioritized. Patient report given, questions answered & plan of care reviewed with OVIDIO FISHER.
--- NOTE | 2020-03-18 18:32 | NUR ---
Patient in room [facility]. I have received report from Azra FISHER and had the opportunity to ask questions and assume patient care.
[2020-03-18 20:00] VITALS: BP 122/66
[2020-03-18] MEDS: docusate sod 100mg capsule PO SCH (20:20)
--- NOTE | 2020-03-19 06:14 | NUR ---
Problems reprioritized. Patient report given, questions answered & plan of care reviewed with PAULA FISHER. Addendum: 03/19/20 at 0630 by Joyce Kwan RN Problems reprioritized. Patient report given, questions answered & plan of care reviewed with KIMBERLEY FISHER. MISTAKENLY DOCUMENTED REPORTING OFF TO PAULA FISHER.
--- NOTE | 2020-03-19 06:35 | NUR ---
Patient in room [facility]. I have received report from NATALIA NOLAN and had the opportunity to ask questions and assume patient care.
[2020-03-19] MEDS: lactose-reduced food (Ensure High Protein) 237ml bottle PO SCH ×2 (07:30→17:30)
[2020-03-19] MEDS: neomy sulf/bacitrac zn/polymixin b oint 14.2 gm tube TP SCH ×3 (08:00→20:28)
[2020-03-19] MEDS: atorvastatin 20mg tablet PO SCH (08:00)
[2020-03-19] MEDS: tamsulosin 0.4mg capsule PO SCH (08:00)
[2020-03-19] MEDS: docusate sod 100mg capsule PO SCH ×2 (08:00→20:28)
[2020-03-19] MEDS: topiramate 100mg tablet PO SCH ×2 (08:00→20:28)
[2020-03-19] MEDS: sertraline 50mg tablet PO SCH (08:00)
[2020-03-19] MEDS: lactobacillus rhamnosus 10,000 MMU CELLS/CAPSULE PO SCH ×2 (08:00→20:28)
[2020-03-19] MEDS: rivaroxaban 10mg tablet PO SCH (08:00)
[2020-03-19] MEDS: QUEtiapine 25mg tablet PO SCH ×2 (08:00→20:28)
[2020-03-19] MEDS: levetiracetam 250mg tablet PO SCH (09:21)
--- NOTE | 2020-03-19 09:49 | NUR ---
TRIED TO GIVE PATIENT HIS MEDS, PATIENT SPITTING MEDS AND APPLE SAUCE OUT, CALLING NURSE AND AIDE HELPING "BITCHES" THAT HE IS AN "ASSHOLE" AND FOR US TO "FUCK OFF" SPIT, MEDS AND APPLE SAUCE WERE CLEANED UP. PATIENT LEFT IN CHAIR IN A COMFORTABLE POSITION, WITH TABS ALARM ON
[2020-03-19 11:00] VITALS: BP 116/68
--- NOTE | 2020-03-19 12:52 | NUR ---
PATIENT REFUSED ASSESS, CHARTED WHAT I SAW Addendum: 03/19/20 at 1256 by Ingrid Carey RN Amended: Links added.
[2020-03-19] MEDS: HYDROcodone/acetaminophen 10/325mg tab PO PRN (16:17)
--- NOTE | 2020-03-19 18:30 | NUR ---
Problems reprioritized. Patient report given, questions answered & plan of care reviewed with NATALIA NOLAN.
--- NOTE | 2020-03-19 18:54 | NUR ---
Patient in room [facility]. I have received report from Ingrid FISHER and had the opportunity to ask questions and assume patient care.
[2020-03-19 20:00] VITALS: BP 129/73
[2020-03-19 23:57] VITALS: BP 134/61
--- NOTE | 2020-03-20 06:33 | NUR ---
Problems reprioritized. Patient report given, questions answered & plan of care reviewed with ANA FISHER. Addendum: 03/20/20 at 0637 by Joyce Kwan RN Problems reprioritized. Patient report given, questions answered & plan of care reviewed with KIMBERLEY FISHER, MISTAKENLY REPORTED OFF TO ANA MAGALLANES.
--- NOTE | 2020-03-20 07:10 | NUR ---
Patient in room [facility]. I have received report from NATALIA NOLAN and had the opportunity to ask questions and assume patient care.
[2020-03-20] MEDS: lactose-reduced food (Ensure High Protein) 237ml bottle PO SCH ×2 (07:30→17:30)
[2020-03-20 07:50] VITALS: BP 126/77
[2020-03-20] MEDS: neomy sulf/bacitrac zn/polymixin b oint 14.2 gm tube TP SCH ×3 (08:00→21:00)
[2020-03-20] MEDS: lactobacillus rhamnosus 10,000 MMU CELLS/CAPSULE PO SCH ×2 (08:00→19:41)
[2020-03-20] MEDS: rivaroxaban 10mg tablet PO SCH (09:41)
[2020-03-20] MEDS: atorvastatin 20mg tablet PO SCH (09:42)
[2020-03-20] MEDS: topiramate 100mg tablet PO SCH ×2 (09:42→19:42)
[2020-03-20] MEDS: tamsulosin 0.4mg capsule PO SCH (09:42)
[2020-03-20] MEDS: QUEtiapine 25mg tablet PO SCH ×2 (09:42→19:41)
[2020-03-20] MEDS: sertraline 50mg tablet PO SCH (09:42)
[2020-03-20] MEDS: levetiracetam 250mg tablet PO SCH (09:43)
[2020-03-20] MEDS: docusate sod 100mg capsule PO SCH ×2 (09:43→19:47)
[2020-03-20] MEDS: HYDROcodone/acetaminophen 10/325mg tab PO PRN ×2 (09:43→19:47)
[2020-03-20 12:14] VITALS: BP 121/75
--- NOTE | 2020-03-20 18:30 | NUR ---
Patient in room [facility]. I have received report from KIMBERLEY and had the opportunity to ask questions and assume patient care.
--- NOTE | 2020-03-20 19:00 | NUR ---
Problems reprioritized. Patient report given, questions answered & plan of care reviewed with NATALIA MENCHACA.
[2020-03-20 19:57] VITALS: BP 108/67
[2020-03-20 23:00] VITALS: BP 117/75
[2020-03-20] MEDS: LORazepam 1 MG tablet PO PRN (23:07)
[2020-03-21 06:00] VITALS: BP 119/73
--- NOTE | 2020-03-21 06:07 | NUR ---
Problems reprioritized. Patient report given, questions answered & plan of care reviewed with
--- NOTE | 2020-03-21 06:10 | NUR ---
received report from emeli alamo
[2020-03-21] MEDS: lactose-reduced food (Ensure High Protein) 237ml bottle PO SCH ×3 (08:02→18:45)
[2020-03-21] MEDS: docusate sod 100mg capsule PO SCH ×2 (08:10→19:56)
[2020-03-21] MEDS: lactobacillus rhamnosus 10,000 MMU CELLS/CAPSULE PO SCH ×2 (08:11→19:55)
[2020-03-21] MEDS: tamsulosin 0.4mg capsule PO SCH (08:12)
[2020-03-21] MEDS: levetiracetam 250mg tablet PO SCH (08:13)
[2020-03-21] MEDS: topiramate 100mg tablet PO SCH ×2 (08:15→19:55)
[2020-03-21] MEDS: QUEtiapine 25mg tablet PO SCH ×2 (08:16→19:55)
[2020-03-21] MEDS: sertraline 50mg tablet PO SCH (08:16)
[2020-03-21] MEDS: rivaroxaban 10mg tablet PO SCH (08:16)
[2020-03-21] MEDS: atorvastatin 20mg tablet PO SCH (08:16)
[2020-03-21] MEDS: neomy sulf/bacitrac zn/polymixin b oint 14.2 gm tube TP SCH ×3 (08:17→20:01)
[2020-03-21 08:51] VITALS: BP 119/73
[2020-03-21] MEDS: HYDROcodone/acetaminophen 10/325mg tab PO PRN ×2 (09:12→17:21)
--- NOTE | 2020-03-21 10:32 | NUR ---
Student documentation: I have reviewed and agree with all interventions, assessments performed and documented by Mark, nursing informatics specialist.
--- NOTE | 2020-03-21 11:54 | NUR ---
Reassessment: Pt remains A/O x 1 and confused. Pt continues with fluctuating PO intake of meals and ONS, however overall 75-100% PO intake of meals while receiving double protein BIDLD and with average 75% PO intake of ONS meeting nutrient needs. Diet order has been changed to CHO Controlled although unknown trend in BG levels as no labs have been taken since 03/10. Pt previously on hyperglycemic protocol although insulin has been discontinued and pt continues with PRN dextrose available. LBM 6/8 per I&O. Pt continues awaiting placement per MD notes. Will continue to follow. Recommendations: 1) Continue carb controlled diet 2) Double protein BIDLD; ensure high protein BIDBD 3) Routine bowel care 4) Scaled wts Addendum: 03/21/20 at [address] Amended: Links added.
--- NOTE | 2020-03-21 15:16 | NUR ---
Student Medication Administration: For this medication-pass time frame, all medication were reviewed, dispensed, administered and documented per hospital policy by regis Florescommunity health nursing director.
--- NOTE | 2020-03-21 18:06 | NUR ---
gave report to emeli elias
--- NOTE | 2020-03-21 18:39 | NUR ---
Patient in room [facility]. I have received report from Xiomara FISHER and had the opportunity to ask questions and assume patient care.
[2020-03-21 20:00] VITALS: BP 104/64
[2020-03-21] MEDS: LORazepam 1 MG tablet PO PRN (20:20)
[2020-03-22] VITALS: BP 120/70
--- NOTE | 2020-03-22 06:20 | NUR ---
Problems reprioritized. Patient report given, questions answered & plan of care reviewed with Yelena FISHER.
--- NOTE | 2020-03-22 06:49 | NUR ---
Patient in room [facility]. I have received report from Patricia Segura and had the opportunity to ask questions and assume patient care.
--- NOTE | 2020-03-22 06:52 | NUR ---
Patient in room [facility]. I have received report from NATALIA Harrington and had the opportunity to ask questions and assume patient care.
[2020-03-22 07:00] VITALS: BP 113/70
[2020-03-22] MEDS: atorvastatin 20mg tablet PO SCH (07:47)
[2020-03-22] MEDS: tamsulosin 0.4mg capsule PO SCH (07:47)
[2020-03-22] MEDS: levetiracetam 250mg tablet PO SCH (07:47)
[2020-03-22] MEDS: docusate sod 100mg capsule PO SCH ×2 (07:47→20:39)
[2020-03-22] MEDS: lactobacillus rhamnosus 10,000 MMU CELLS/CAPSULE PO SCH (07:47)
[2020-03-22] MEDS: rivaroxaban 10mg tablet PO SCH (07:48)
[2020-03-22] MEDS: sertraline 50mg tablet PO SCH (07:48)
[2020-03-22] MEDS: topiramate 100mg tablet PO SCH ×2 (07:48→20:40)
[2020-03-22] MEDS: QUEtiapine 25mg tablet PO SCH ×2 (07:48→20:40)
[2020-03-22 08:00] VITALS: BP 113/70
[2020-03-22] MEDS: neomy sulf/bacitrac zn/polymixin b oint 14.2 gm tube TP SCH ×3 (08:04→20:46)
--- NOTE | 2020-03-22 09:17 | NUR ---
Student Medication Administration: For this medication-pass time frame, all medication were reviewed, dispensed, administered and documented per hospital policy by Fernanda Student Nurse.
[2020-03-22 11:44] VITALS: BP 111/66
[2020-03-22] MEDS: HYDROcodone/acetaminophen 10/325mg tab PO PRN ×2 (15:45→20:40)
[2020-03-22] MEDS: lactose-reduced food (Ensure High Protein) 237ml bottle PO SCH (17:30)
--- NOTE | 2020-03-22 17:34 | NUR ---
Problems reprioritized. Patient report given, questions answered & plan of care reviewed with NATALIA Kirk.
--- NOTE | 2020-03-22 18:07 | NUR ---
Patient in room [facility]. I have received report from Yelena FISHER and had the opportunity to ask questions and assume patient care.
--- NOTE | 2020-03-22 18:50 | NUR ---
Problems reprioritized. Patient report given, questions answered & plan of care reviewed with Patricia FISHER.
[2020-03-22 20:00] VITALS: BP 120/75
[2020-03-23 00:08] VITALS: BP 113/69
--- NOTE | 2020-03-23 06:36 | NUR ---
Problems reprioritized. Patient report given, questions answered & plan of care reviewed with Yelena FISHER.
--- NOTE | 2020-03-23 06:55 | NUR ---
Patient in room [facility]. I have received report from Patricia FISHER and had the opportunity to ask questions and assume patient care.
[2020-03-23] MEDS: lactose-reduced food (Ensure High Protein) 237ml bottle PO SCH ×2 (07:30→17:30)
--- NOTE | 2020-03-23 07:39 | NUR ---
pt. refused to let me check vitals, but agreed to let me listen to his lungs. skin tone normal, no accessory muscle use. pt resting comfortably on room air. Addendum: 03/23/20 at 0740 by Agustín Prado RT Amended: Links added.
[2020-03-23] MEDS: neomy sulf/bacitrac zn/polymixin b oint 14.2 gm tube TP SCH ×3 (08:00→21:53)
[2020-03-23] MEDS: tamsulosin 0.4mg capsule PO SCH (08:34)
[2020-03-23] MEDS: levetiracetam 250mg tablet PO SCH (08:34)
[2020-03-23] MEDS: docusate sod 100mg capsule PO SCH ×2 (08:34→21:52)
[2020-03-23] MEDS: QUEtiapine 25mg tablet PO SCH ×2 (08:35→21:52)
[2020-03-23] MEDS: sertraline 50mg tablet PO SCH (08:35)
[2020-03-23] MEDS: atorvastatin 20mg tablet PO SCH (08:35)
[2020-03-23] MEDS: topiramate 100mg tablet PO SCH ×2 (08:35→21:52)
[2020-03-23] MEDS: rivaroxaban 10mg tablet PO SCH (08:42)
[2020-03-23 11:00] VITALS: BP 117/76
[2020-03-23] MEDS: HYDROcodone/acetaminophen 10/325mg tab PO PRN (13:55)
--- NOTE | 2020-03-23 18:15 | NUR ---
Patient refused 1800 vital signs.
--- NOTE | 2020-03-23 18:36 | NUR ---
Problems reprioritized. Patient report given, questions answered & plan of care reviewed with Dona Segura.
--- NOTE | 2020-03-23 18:48 | NUR ---
Patient in room [facility]. I have received report from NATALIA Kirk and had the opportunity to ask questions and assume patient care.
--- NOTE | 2020-03-24 00:15 | NUR ---
Pt refused midnight vitals
--- NOTE | 2020-03-24 06:31 | NUR ---
Problems reprioritized. Patient report given, questions answered & plan of care reviewed with NATALIA Albert.
[2020-03-24 07:00] VITALS: BP 123/75
[2020-03-24] MEDS: rivaroxaban 10mg tablet PO SCH (07:40)
[2020-03-24] MEDS: levetiracetam 250mg tablet PO SCH (07:40)
[2020-03-24] MEDS: lactose-reduced food (Ensure High Protein) 237ml bottle PO SCH ×2 (07:40→17:29)
[2020-03-24] MEDS: topiramate 100mg tablet PO SCH ×2 (07:41→19:56)
[2020-03-24] MEDS: docusate sod 100mg capsule PO SCH ×2 (07:41→19:45)
[2020-03-24] MEDS: tamsulosin 0.4mg capsule PO SCH (07:41)
[2020-03-24] MEDS: atorvastatin 20mg tablet PO SCH (07:41)
[2020-03-24] MEDS: sertraline 50mg tablet PO SCH (07:41)
[2020-03-24] MEDS: QUEtiapine 25mg tablet PO SCH ×2 (07:41→19:56)
[2020-03-24] MEDS: neomy sulf/bacitrac zn/polymixin b oint 14.2 gm tube TP SCH ×3 (07:41→21:04)
[2020-03-24] MEDS: HYDROcodone/acetaminophen 10/325mg tab PO PRN ×3 (07:42→23:34)
[2020-03-24 11:00] VITALS: BP 117/68
--- NOTE | 2020-03-24 15:27 | NUR ---
Unable to scan neosporin. Label folded. Notified pharmacy associate. She took medication downstairs.
--- NOTE | 2020-03-24 18:28 | NUR ---
Patient in room [facility]. I have received report from NATALIA Albert and had the opportunity to ask questions and assume patient care.
--- NOTE | 2020-03-24 18:30 | NUR ---
Gave report to Dona FISHER.
--- NOTE | 2020-03-24 20:39 | NUR ---
Patient refused 1800 vital signs
[2020-03-25 00:21] VITALS: BP 123/71
--- NOTE | 2020-03-25 06:33 | NUR ---
Problems reprioritized. Patient report given, questions answered & plan of care reviewed with NATALIA Prabhakar.
--- NOTE | 2020-03-25 06:50 | NUR ---
Patient in room [facility]. I have received report from GINA FISHER and had the opportunity to ask questions and assume patient care.
[2020-03-25 07:26] VITALS: BP 116/64
[2020-03-25] MEDS: lactose-reduced food (Ensure High Protein) 237ml bottle PO SCH ×2 (07:30→16:34)
[2020-03-25] MEDS: levetiracetam 250mg tablet PO SCH (08:31)
[2020-03-25] MEDS: sertraline 50mg tablet PO SCH (08:31)
[2020-03-25] MEDS: atorvastatin 20mg tablet PO SCH (08:31)
[2020-03-25] MEDS: topiramate 100mg tablet PO SCH ×2 (08:31→20:08)
[2020-03-25] MEDS: docusate sod 100mg capsule PO SCH (08:31)
[2020-03-25] MEDS: tamsulosin 0.4mg capsule PO SCH (08:31)
[2020-03-25] MEDS: rivaroxaban 10mg tablet PO SCH (08:31)
[2020-03-25] MEDS: QUEtiapine 25mg tablet PO SCH ×2 (08:31→20:08)
[2020-03-25] MEDS: neomy sulf/bacitrac zn/polymixin b oint 14.2 gm tube TP SCH ×3 (08:31→20:08)
[2020-03-25] MEDS: HYDROcodone/acetaminophen 10/325mg tab PO PRN ×2 (09:12→14:56)
[2020-03-25 11:32] VITALS: BP 118/73
--- NOTE | 2020-03-25 17:14 | NUR ---
no changes, patient walked by PT 80 feet. patient spitting this shift, continues to be verbally inappropriate. . All cares given
[2020-03-25 18:15] VITALS: BP 103/63
--- NOTE | 2020-03-25 18:21 | NUR ---
Problems reprioritized. Patient report given, questions answered & plan of care reviewed with Dona FISHER.
--- NOTE | 2020-03-25 18:30 | NUR ---
Patient in room [facility]. I have received report from NATALIA Prabhakar and had the opportunity to ask questions and assume patient care.
[2020-03-25] MEDS: docusate sodium 100mg/10ml UD cup PO SCH (20:08)
[2020-03-25] MEDS: LORazepam 1 MG tablet PO PRN (21:01)
[2020-03-26 00:39] VITALS: BP 130/66
--- NOTE | 2020-03-26 06:20 | NUR ---
Patient in room [facility]. I have received report from NATALIA Carcamo and had the opportunity to ask questions and assume patient care.
[2020-03-26 06:30] VITALS: BP 119/72
--- NOTE | 2020-03-26 06:59 | NUR ---
Problems reprioritized. Patient report given, questions answered & plan of care reviewed with NATALIA Hyman.
[2020-03-26] MEDS: lactose-reduced food (Ensure High Protein) 237ml bottle PO SCH ×2 (07:30→17:31)
[2020-03-26] MEDS: QUEtiapine 25mg tablet PO SCH ×2 (10:07→21:25)
[2020-03-26] MEDS: docusate sodium 100mg/10ml UD cup PO SCH ×2 (10:07→21:24)
[2020-03-26] MEDS: sertraline 50mg tablet PO SCH (10:07)
[2020-03-26] MEDS: topiramate 100mg tablet PO SCH ×2 (10:07→21:24)
[2020-03-26] MEDS: tamsulosin 0.4mg capsule PO SCH (10:08)
[2020-03-26] MEDS: levetiracetam 250mg tablet PO SCH (10:08)
[2020-03-26] MEDS: atorvastatin 20mg tablet PO SCH (10:08)
[2020-03-26] MEDS: rivaroxaban 10mg tablet PO SCH (10:08)
[2020-03-26] MEDS: neomy sulf/bacitrac zn/polymixin b oint 14.2 gm tube TP SCH (10:09)
[2020-03-26] MEDS ORDERED: bisacodyl 10mg suppository rectal RC PRN (10:10)
[2020-03-26 11:00] VITALS: BP 107/72
--- NOTE | 2020-03-26 18:00 | NUR ---
Patient in room [facility]. I have received report from Yenni FISHER and had the opportunity to ask questions and assume patient care.
--- NOTE | 2020-03-26 18:10 | NUR ---
Problems reprioritized. Patient report given, questions answered & plan of care reviewed with NATALIA Gomez.
[2020-03-26 20:00] VITALS: BP 117/77
[2020-03-26] MEDS: HYDROcodone/acetaminophen 10/325mg tab PO PRN (22:57)
[2020-03-27] VITALS: BP 119/74
[2020-03-27] MEDS: HYDROcodone/acetaminophen 10/325mg tab PO PRN (05:26)
--- NOTE | 2020-03-27 06:20 | NUR ---
Problems reprioritized. Patient report given, questions answered & plan of care reviewed with Carmen FISHER.
--- NOTE | 2020-03-27 06:39 | NUR ---
Patient in room [facility]. I have received report from NATALIA Gomez and had the opportunity to ask questions and assume patient care.
[2020-03-27 07:00] VITALS: BP 95/48
[2020-03-27] MEDS: levetiracetam 250mg tablet PO SCH (07:50)
[2020-03-27] MEDS: atorvastatin 20mg tablet PO SCH (07:50)
[2020-03-27] MEDS: topiramate 100mg tablet PO SCH ×2 (07:50→20:40)
[2020-03-27] MEDS: QUEtiapine 25mg tablet PO SCH ×2 (07:50→20:40)
[2020-03-27] MEDS: sertraline 50mg tablet PO SCH (07:50)
[2020-03-27] MEDS: tamsulosin 0.4mg capsule PO SCH (07:50)
[2020-03-27] MEDS: rivaroxaban 10mg tablet PO SCH (07:50)
[2020-03-27] MEDS: docusate sodium 100mg/10ml UD cup PO SCH ×2 (07:51→20:39)
[2020-03-27] MEDS: lactose-reduced food (Ensure High Protein) 237ml bottle PO SCH ×2 (07:51→18:01)
[2020-03-27 12:33] VITALS: BP 96/73
--- NOTE | 2020-03-27 18:08 | NUR ---
Problems reprioritized. Patient report given, questions answered & plan of care reviewed with NATALIA Leahy.
[2020-03-27 20:00] VITALS: BP 123/72
[2020-03-28] VITALS: BP 105/70
[2020-03-28] MEDS: HYDROcodone/acetaminophen 10/325mg tab PO PRN (03:37)
[2020-03-28 07:00] VITALS: BP 124/68
[2020-03-28] MEDS: lactose-reduced food (Ensure High Protein) 237ml bottle PO SCH ×2 (07:30→17:34)
[2020-03-28] MEDS: topiramate 100mg tablet PO SCH ×2 (09:32→20:31)
[2020-03-28] MEDS: rivaroxaban 10mg tablet PO SCH (09:32)
[2020-03-28] MEDS: levetiracetam 250mg tablet PO SCH (09:32)
[2020-03-28] MEDS: atorvastatin 20mg tablet PO SCH (09:32)
[2020-03-28] MEDS: sertraline 50mg tablet PO SCH (09:33)
[2020-03-28] MEDS: docusate sodium 100mg/10ml UD cup PO SCH ×2 (09:33→20:31)
[2020-03-28] MEDS: QUEtiapine 25mg tablet PO SCH ×2 (09:33→20:31)
[2020-03-28] MEDS: tamsulosin 0.4mg capsule PO SCH (09:33)
--- NOTE | 2020-03-28 10:19 | NUR ---
Reassessment: Pt continues with overall 75-100% PO intake of meals while receiving double protein BIDLD and with average 75% PO intake of ONS meeting nutrient needs. [facility] 03/27 Pt continues awaiting placement per MD notes. Will continue to follow. Recommendations: 1) Continue carb controlled, mechanical soft grind all diet 2) Double protein BIDLD; ensure high protein BIDBD 3) Routine bowel care 4) Scaled wts Addendum: 03/28/20 at [address] Amended: Links added.
[2020-03-28 11:00] VITALS: BP 110/62
--- NOTE | 2020-03-28 18:30 | NUR ---
Received report from primary care nurse Ashley RN. Assumed patient care. Patient is awake and alert on room air. In no apparent distress. Call light and items of frequent use within reach. Will continue to monitor for changes.
--- NOTE | 2020-03-28 18:37 | NUR ---
Problems reprioritized. Patient report given, questions answered & plan of care reviewed with NATALIA Ren.
[2020-03-28 19:00] VITALS: BP 126/75
--- NOTE | 2020-03-28 23:00 | NUR ---
Reported off to Estiven FISHER. Patient is awake and alert on room air in no apparent distress. Call light and items of frequent use within reach. Will continue to monitor.
[2020-03-29] VITALS: BP 113/77
[2020-03-29 07:00] VITALS: BP 103/40
[2020-03-29] MEDS: lactose-reduced food (Ensure High Protein) 237ml bottle PO SCH ×2 (07:30→17:50)
[2020-03-29] MEDS: tamsulosin 0.4mg capsule PO SCH (08:00)
[2020-03-29] MEDS: sertraline 50mg tablet PO SCH (08:47)
[2020-03-29] MEDS: atorvastatin 20mg tablet PO SCH (08:47)
[2020-03-29] MEDS: QUEtiapine 25mg tablet PO SCH ×2 (08:47→21:16)
[2020-03-29] MEDS: docusate sodium 100mg/10ml UD cup PO SCH ×2 (08:47→21:16)
[2020-03-29] MEDS: levetiracetam 250mg tablet PO SCH (08:47)
[2020-03-29] MEDS: topiramate 100mg tablet PO SCH ×2 (08:47→21:16)
[2020-03-29] MEDS: rivaroxaban 10mg tablet PO SCH (08:47)
[2020-03-29 11:52] VITALS: BP 110/65
[2020-03-29 20:00] VITALS: BP 123/73
[2020-03-29] MEDS: HYDROcodone/acetaminophen 5mg/325mg tablet PO PRN (21:22)
[2020-03-30] VITALS: BP 151/64
--- NOTE | 2020-03-30 06:00 | NUR ---
Problems reprioritized. Patient report given, questions answered & plan of care reviewed with NATALIA Michael.
[2020-03-30] MEDS: levetiracetam 250mg tablet PO SCH (07:27)
[2020-03-30] MEDS: atorvastatin 20mg tablet PO SCH (07:29)
[2020-03-30] MEDS: sertraline 50mg tablet PO SCH (07:30)
[2020-03-30] MEDS: QUEtiapine 25mg tablet PO SCH ×2 (07:31→21:21)
[2020-03-30] MEDS: topiramate 100mg tablet PO SCH ×2 (07:32→21:21)
[2020-03-30] MEDS: docusate sodium 100mg/10ml UD cup PO SCH ×2 (07:33→21:21)
[2020-03-30] MEDS: tamsulosin 0.4mg capsule PO SCH (07:33)
[2020-03-30] MEDS: lactose-reduced food (Ensure High Protein) 237ml bottle PO SCH ×2 (07:34→17:56)
[2020-03-30] MEDS: rivaroxaban 10mg tablet PO SCH (07:56)
[2020-03-30 08:00] VITALS: BP 98/56
[2020-03-30 11:46] VITALS: BP 109/68
--- NOTE | 2020-03-30 16:26 | NUR ---
Student Medication Administration: For this medication-pass time frame, all medication were reviewed, dispensed, administered and documented per hospital policy by regsi Quigley student.
--- NOTE | 2020-03-30 18:33 | NUR ---
Problems reprioritized. Patient report given, questions answered & plan of care reviewed with NATALIA Michael.
[2020-03-30 20:00] VITALS: BP 117/72
[2020-03-30] MEDS: HYDROcodone/acetaminophen 10/325mg tab PO PRN (21:21)
[2020-03-31] VITALS: BP 115/82
--- NOTE | 2020-03-31 06:00 | NUR ---
Problems reprioritized. Patient report given, questions answered & plan of care reviewed with NATALIA Michael.
[2020-03-31 07:00] VITALS: BP 111/57
[2020-03-31] MEDS: tamsulosin 0.4mg capsule PO SCH (08:02)
[2020-03-31] MEDS: docusate sodium 100mg/10ml UD cup PO SCH ×2 (08:02→20:11)
[2020-03-31] MEDS: lactose-reduced food (Ensure High Protein) 237ml bottle PO SCH ×2 (08:02→17:46)
[2020-03-31] MEDS: topiramate 100mg tablet PO SCH ×2 (08:03→20:11)
[2020-03-31] MEDS: QUEtiapine 25mg tablet PO SCH ×2 (08:03→20:11)
[2020-03-31] MEDS: rivaroxaban 10mg tablet PO SCH (08:03)
[2020-03-31] MEDS: levetiracetam 250mg tablet PO SCH (08:03)
[2020-03-31] MEDS: atorvastatin 20mg tablet PO SCH (08:03)
[2020-03-31] MEDS: sertraline 50mg tablet PO SCH (08:05)
[2020-03-31 11:00] VITALS: BP 122/72
[2020-03-31] MEDS: HYDROcodone/acetaminophen 10/325mg tab PO PRN (12:48)
--- NOTE | 2020-03-31 15:04 | NUR ---
Student Medication Administration: For this medication-pass time frame, all medication were reviewed, dispensed, administered and documented per hospital policy by Abel assistant professor of nursing.
--- NOTE | 2020-03-31 15:04 | NUR ---
Student documentation: I have reviewed and agree with all interventions, assessments performed and documented by Abel, nursing informatics analyst.
--- NOTE | 2020-03-31 17:44 | NUR ---
Report given to NATALIA Boyer. Pt resting and in no apparent distress.
[2020-03-31 18:00] VITALS: BP 114/81
--- NOTE | 2020-03-31 18:00 | NUR ---
Problems reprioritized. Patient report given, questions answered & plan of care reviewed with Sharon Rausch RN.
--- NOTE | 2020-03-31 18:27 | NUR ---
Patient in room [facility]. I have received report from NATALIA Boyer and had the opportunity to ask questions and assume patient care. Addendum: 03/31/20 at 1828 by Angi Rivas RN Amended: Links added.
[2020-04-01] VITALS: BP 117/63
--- NOTE | 2020-04-01 06:47 | NUR ---
Patient in room [facility]. I have received report from NATALIA GONCALVES and had the opportunity to ask questions and assume patient care.
--- NOTE | 2020-04-01 06:49 | NUR ---
Patient in room [facility]. I have received report from Sharon FISHER and had the opportunity to ask questions and assume patient care.
[2020-04-01 07:00] VITALS: BP 129/62
[2020-04-01] MEDS: lactose-reduced food (Ensure High Protein) 237ml bottle PO SCH ×2 (07:30→17:30)
--- NOTE | 2020-04-01 07:45 | NUR ---
Patient in room [facility]. I have received report from Yelena and had the opportunity to ask questions and assume patient care.
[2020-04-01] MEDS: docusate sodium 100mg/10ml UD cup PO SCH ×2 (08:00→19:07)
[2020-04-01] MEDS: levetiracetam 250mg tablet PO SCH (09:28)
[2020-04-01] MEDS: tamsulosin 0.4mg capsule PO SCH (09:29)
[2020-04-01] MEDS: topiramate 100mg tablet PO SCH ×2 (09:29→19:07)
[2020-04-01] MEDS: QUEtiapine 25mg tablet PO SCH ×2 (09:30→19:07)
[2020-04-01] MEDS: sertraline 50mg tablet PO SCH (09:30)
[2020-04-01] MEDS: rivaroxaban 10mg tablet PO SCH (09:31)
[2020-04-01] MEDS: atorvastatin 20mg tablet PO SCH (09:31)
[2020-04-01] MEDS: HYDROcodone/acetaminophen 10/325mg tab PO PRN ×2 (09:43→23:30)
--- NOTE | 2020-04-01 09:45 | NUR ---
ADMINISTERED PATIENT'S ORAL MEDS. PATIENT WENT ON TO SPIT OUT THE MAJORITY OF THE MEDICATION. TOLD NURSE ABOUT INCIDENT.
[2020-04-01 11:00] VITALS: BP 110/80
--- NOTE | 2020-04-01 11:06 | NUR ---
Patient states he is starving. Provided patient with apple sauce (2cups) and one cup of yogurt. Addendum: 04/01/20 at 1107 by Aliyah DARBY Amended: Links added.
--- NOTE | 2020-04-01 12:28 | NUR ---
Student documentation: I have reviewed and agree with all interventions, assessments performed and documented by Aliyah, deputy director of nursing.
--- NOTE | 2020-04-01 12:28 | NUR ---
Student Medication Administration: For this medication-pass time frame, all medication were reviewed, dispensed, administered and documented per hospital policy by Aliyah state tested nursing assistant.
--- NOTE | 2020-04-01 16:33 | NUR ---
Problems reprioritized. Patient report given, questions answered & plan of care reviewed with
[2020-04-01 18:00] VITALS: BP 105/72
--- NOTE | 2020-04-01 18:55 | NUR ---
Problems reprioritized. Patient report given, questions answered & plan of care reviewed with Patricia FISHER.
--- NOTE | 2020-04-01 19:23 | NUR ---
Patient in room [facility]. I have received report from Yelena FISHER and had the opportunity to ask questions and assume patient care.
[2020-04-02] MEDS: LORazepam 1 MG tablet PO PRN (00:51)
--- NOTE | 2020-04-02 06:26 | NUR ---
Problems reprioritized. Patient report given, questions answered & plan of care reviewed with Urbano FISHER.
--- NOTE | 2020-04-02 06:27 | NUR ---
Patient in room [facility] 359. I have received report from Patricia FISHER and had the opportunity to ask questions and assume patient care.
[2020-04-02 07:40] VITALS: BP 131/81
[2020-04-02] MEDS: docusate sodium 100mg/10ml UD cup PO SCH ×2 (08:23→20:19)
[2020-04-02] MEDS: sertraline 50mg tablet PO SCH (08:24)
[2020-04-02] MEDS: levetiracetam 250mg tablet PO SCH (08:24)
[2020-04-02] MEDS: QUEtiapine 25mg tablet PO SCH ×2 (08:24→20:19)
[2020-04-02] MEDS: topiramate 100mg tablet PO SCH ×2 (08:24→20:19)
[2020-04-02] MEDS: tamsulosin 0.4mg capsule PO SCH (08:24)
[2020-04-02] MEDS: atorvastatin 20mg tablet PO SCH (08:25)
[2020-04-02] MEDS: rivaroxaban 10mg tablet PO SCH (08:27)
[2020-04-02] MEDS: lactose-reduced food (Ensure High Protein) 237ml bottle PO SCH ×2 (08:29→17:30)
--- NOTE | 2020-04-02 09:57 | NUR ---
Patient stated he's hurting so I offered Tylenol for pain. I tried to give him Tylenol with the apple sauce, patient spitting it up 3 times.
--- NOTE | 2020-04-02 10:00 | NUR ---
Put mask on the patient, after few minutes patient removed it. I worn face shield for protection
[2020-04-02 18:00] VITALS: BP 115/67
--- NOTE | 2020-04-02 18:30 | NUR ---
Problems reprioritized. Patient report given, questions answered & plan of care reviewed with Prudence RN.
--- NOTE | 2020-04-03 06:34 | NUR ---
Problems reprioritized. Patient report given, questions answered & plan of care reviewed with VLADIMIR RN.
[2020-04-03 07:00] VITALS: BP 114/71
[2020-04-03] MEDS: atorvastatin 20mg tablet PO SCH (08:05)
[2020-04-03] MEDS: docusate sodium 100mg/10ml UD cup PO SCH ×2 (08:05→21:08)
[2020-04-03] MEDS: levetiracetam 250mg tablet PO SCH (08:05)
[2020-04-03] MEDS: QUEtiapine 25mg tablet PO SCH ×2 (08:06→21:08)
[2020-04-03] MEDS: topiramate 100mg tablet PO SCH ×2 (08:06→21:08)
[2020-04-03] MEDS: tamsulosin 0.4mg capsule PO SCH (08:06)
[2020-04-03] MEDS: sertraline 50mg tablet PO SCH (08:06)
[2020-04-03] MEDS: lactose-reduced food (Ensure High Protein) 237ml bottle PO SCH ×2 (08:06→17:38)
[2020-04-03] MEDS: rivaroxaban 10mg tablet PO SCH (09:47)
[2020-04-03 12:00] VITALS: BP 114/73
--- NOTE | 2020-04-03 18:33 | NUR ---
Problems reprioritized. Patient report given, questions answered & plan of care reviewed with NATALIA Babcock.
[2020-04-03 23:40] VITALS: BP 120/73
[2020-04-04] MEDS: HYDROcodone/acetaminophen 10/325mg tab PO PRN ×2 (02:43→08:53)
[2020-04-04] MEDS: lactose-reduced food (Ensure High Protein) 237ml bottle PO SCH ×2 (07:30→17:34)
[2020-04-04] MEDS: docusate sodium 100mg/10ml UD cup PO SCH ×2 (08:00→19:57)
[2020-04-04 08:23] VITALS: BP 121/81
[2020-04-04] MEDS: atorvastatin 20mg tablet PO SCH (08:53)
[2020-04-04] MEDS: levetiracetam 250mg tablet PO SCH (08:53)
[2020-04-04] MEDS: topiramate 100mg tablet PO SCH ×2 (08:53→19:58)
[2020-04-04] MEDS: tamsulosin 0.4mg capsule PO SCH (08:54)
[2020-04-04] MEDS: QUEtiapine 25mg tablet PO SCH ×2 (08:54→19:58)
[2020-04-04] MEDS: rivaroxaban 10mg tablet PO SCH (08:54)
[2020-04-04] MEDS: sertraline 50mg tablet PO SCH (08:54)
--- NOTE | 2020-04-04 11:05 | NUR ---
Reassessment: No significant changes since last RD assessment as pt continues with average 75-100% PO intake of meals with 50% and 100% PO intake of ONS meeting nutrient needs. LB 04/04. No further nutrition intervention warranted at this time. Will continue to follow per LOS. Recommendations: 1) Continue carb controlled, mechanical soft grind all diet 2) Double protein BIDLD; ensure high protein BIDBD 3) Routine bowel care 4) Scaled wts Addendum: 04/04/20 at [address] Amended: Links added.
[2020-04-04 11:57] VITALS: BP 121/72
[2020-04-04 18:00] VITALS: BP 120/75
--- NOTE | 2020-04-04 18:37 | NUR ---
Gave report to Sharon Casas RN.
[2020-04-05] VITALS: BP 100/71
--- NOTE | 2020-04-05 06:32 | NUR ---
Problems reprioritized. Patient report given, questions answered & plan of care reviewed with NATALIA Herrera.
--- NOTE | 2020-04-05 06:40 | NUR ---
Patient in room [facility]. I have received report from caludy Grier RN and had the opportunity to ask questions and assume patient care.
[2020-04-05] MEDS: sertraline 50mg tablet PO SCH (07:16)
[2020-04-05] MEDS: levetiracetam 250mg tablet PO SCH (07:18)
[2020-04-05] MEDS: QUEtiapine 25mg tablet PO SCH ×3 (07:20→20:13)
[2020-04-05] MEDS: tamsulosin 0.4mg capsule PO SCH (07:20)
[2020-04-05] MEDS: atorvastatin 20mg tablet PO SCH ×2 (07:23→07:51)
[2020-04-05] MEDS: docusate sodium 100mg/10ml UD cup PO SCH ×2 (07:27→20:13)
[2020-04-05] MEDS: topiramate 100mg tablet PO SCH ×2 (07:27→20:13)
[2020-04-05] MEDS: lactose-reduced food (Ensure High Protein) 237ml bottle PO SCH ×2 (07:30→17:56)
[2020-04-05] MEDS: LORazepam 1 MG tablet PO PRN ×2 (07:52→23:12)
[2020-04-05 08:58] VITALS: BP 119/67
[2020-04-05] MEDS: HYDROcodone/acetaminophen 10/325mg tab PO PRN (10:12)
[2020-04-05 11:13] VITALS: BP 109/63
[2020-04-05] MEDS: rivaroxaban 10mg tablet PO SCH (13:06)
--- NOTE | 2020-04-05 17:56 | NUR ---
patient up with PT ambulated 80 feet with rehab walker see note. medicated x1 for pain prior to PT. All cares given. Up in chair. no new complaints. Report given to jada FISHER
--- NOTE | 2020-04-05 18:40 | NUR ---
Patient in room [facility]. I have received report from Vanna FISHER and had the opportunity to ask questions and assume patient care.
[2020-04-05 20:00] VITALS: BP 110/71
[2020-04-06] VITALS: BP 113/72
--- NOTE | 2020-04-06 06:45 | NUR ---
Patient in room [facility] 359. I have received report from Patricia FISHER and had the opportunity to ask questions and assume patient care.
--- NOTE | 2020-04-06 06:46 | NUR ---
Problems reprioritized. Patient report given, questions answered & plan of care reviewed with Citlalli FISHER.
[2020-04-06 07:00] VITALS: BP 130/70
[2020-04-06] MEDS: lactose-reduced food (Ensure High Protein) 237ml bottle PO SCH ×3 (07:30→17:56)
[2020-04-06] MEDS: levetiracetam 250mg tablet PO SCH (09:59)
[2020-04-06] MEDS: tamsulosin 0.4mg capsule PO SCH (10:03)
[2020-04-06] MEDS: QUEtiapine 25mg tablet PO SCH ×2 (10:05→22:06)
[2020-04-06] MEDS: topiramate 100mg tablet PO SCH ×2 (10:08→22:06)
[2020-04-06] MEDS: sertraline 50mg tablet PO SCH (10:08)
[2020-04-06] MEDS: atorvastatin 20mg tablet PO SCH (10:08)
[2020-04-06] MEDS: rivaroxaban 10mg tablet PO SCH (10:09)
[2020-04-06] MEDS: docusate sodium 100mg/10ml UD cup PO SCH ×2 (10:09→22:06)
[2020-04-06 11:00] VITALS: BP 121/79
[2020-04-06 18:30] VITALS: BP 112/67
--- NOTE | 2020-04-06 18:53 | NUR ---
Problems reprioritized. Patient report given, questions answered & plan of care reviewed with Scott FISHER.
--- NOTE | 2020-04-06 18:55 | NUR ---
Patient in room [facility]. I have received report from ASH FISHER AND NIKOS FISHER and had the opportunity to ask questions and assume patient care.
[2020-04-07] VITALS: BP 110/72
--- NOTE | 2020-04-07 06:30 | NUR ---
Problems reprioritized. Patient report given, questions answered & plan of care reviewed with EILEEN FISHER AND NIKOS FISHER.
--- NOTE | 2020-04-07 06:30 | NUR ---
Patient in room [facility]. I have received report from Scott FISHER and had the opportunity to ask questions and assume patient care.
[2020-04-07 07:25] VITALS: BP 107/73
[2020-04-07] MEDS: lactose-reduced food (Ensure High Protein) 237ml bottle PO SCH ×2 (07:30→17:30)
[2020-04-07] MEDS: topiramate 100mg tablet PO SCH ×4 (08:00→21:38)
[2020-04-07] MEDS: docusate sodium 100mg/10ml UD cup PO SCH ×2 (10:15→21:38)
[2020-04-07] MEDS: sertraline 50mg tablet PO SCH (10:15)
[2020-04-07] MEDS: QUEtiapine 25mg tablet PO SCH ×2 (10:15→21:38)
[2020-04-07] MEDS: rivaroxaban 10mg tablet PO SCH (10:15)
[2020-04-07] MEDS: tamsulosin 0.4mg capsule PO SCH (10:15)
[2020-04-07] MEDS: levetiracetam 250mg tablet PO SCH (10:16)
[2020-04-07] MEDS: atorvastatin 20mg tablet PO SCH (10:16)
[2020-04-07 11:00] VITALS: BP 131/66
--- NOTE | 2020-04-07 19:00 | NUR ---
Problems reprioritized. Patient report given, questions answered & plan of care reviewed with Fernanda FISHER.
--- NOTE | 2020-04-07 22:43 | NUR ---
Patient report given to Sharon Rausch RN.
[2020-04-08] VITALS: BP 109/65
--- NOTE | 2020-04-08 06:07 | NUR ---
Problems reprioritized. Patient report given, questions answered & plan of care reviewed with NATALIA Cr.
--- NOTE | 2020-04-08 06:30 | NUR ---
Patient in room [facility]. I have received report from Sharon Rausch RN and had the opportunity to ask questions and assume patient care.
[2020-04-08] MEDS: lactose-reduced food (Ensure High Protein) 237ml bottle PO SCH ×2 (07:30→17:42)
[2020-04-08 08:00] VITALS: BP 129/75
[2020-04-08] MEDS: docusate sodium 100mg/10ml UD cup PO SCH ×2 (08:44→19:58)
[2020-04-08] MEDS: tamsulosin 0.4mg capsule PO SCH (08:44)
[2020-04-08] MEDS: topiramate 100mg tablet PO SCH ×2 (08:45→19:59)
[2020-04-08] MEDS: levetiracetam 250mg tablet PO SCH (08:45)
[2020-04-08] MEDS: sertraline 50mg tablet PO SCH (08:45)
[2020-04-08] MEDS: QUEtiapine 25mg tablet PO SCH ×2 (08:45→19:58)
[2020-04-08] MEDS: atorvastatin 20mg tablet PO SCH (08:45)
[2020-04-08] MEDS: rivaroxaban 10mg tablet PO SCH (08:45)
[2020-04-08 11:53] VITALS: BP 145/94
[2020-04-08] MEDS: HYDROcodone/acetaminophen 10/325mg tab PO PRN (14:52)
[2020-04-08 18:00] VITALS: BP 109/75
--- NOTE | 2020-04-08 18:02 | NUR ---
Problems reprioritized. Patient report given, questions answered & plan of care reviewed with Sharon Rausch RN.
--- NOTE | 2020-04-08 18:10 | NUR ---
Patient in room [facility]. I have received report from NATALIA Cr and had the opportunity to ask questions and assume patient care. Addendum: 04/08/20 at 1810 by Angi Rivas RN Amended: Links added.
--- NOTE | 2020-04-09 06:20 | NUR ---
Problems reprioritized. Patient report given, questions answered & plan of care reviewed with NATALIA Holt.
[2020-04-09 07:00] VITALS: BP 103/53
[2020-04-09] MEDS: lactose-reduced food (Ensure High Protein) 237ml bottle PO SCH ×2 (07:30→18:23)
[2020-04-09] MEDS: docusate sodium 100mg/10ml UD cup PO SCH ×2 (08:00→20:00)
[2020-04-09] MEDS: QUEtiapine 25mg tablet PO SCH ×2 (09:57→20:00)
[2020-04-09] MEDS: tamsulosin 0.4mg capsule PO SCH (09:57)
[2020-04-09] MEDS: atorvastatin 20mg tablet PO SCH (09:58)
[2020-04-09] MEDS: rivaroxaban 10mg tablet PO SCH (09:58)
[2020-04-09] MEDS: sertraline 50mg tablet PO SCH (09:58)
[2020-04-09] MEDS: levetiracetam 250mg tablet PO SCH (09:58)
[2020-04-09] MEDS: topiramate 100mg tablet PO SCH ×2 (10:01→20:20)
[2020-04-09] MEDS: HYDROcodone/acetaminophen 10/325mg tab PO PRN ×2 (10:06→20:20)
[2020-04-09 11:00] VITALS: BP 109/70
--- NOTE | 2020-04-09 14:07 | NUR ---
PAGER ID: [phone] MESSAGE: Need order for sitter before restraints. May we please have an order for a sitter so pt. doesn't pull out IV? García Do [id number]
--- NOTE | 2020-04-09 14:08 | NUR ---
PAGER ID: [phone] MESSAGE: [id number] García Do aspirated on ground turkey. wheezy anterior LS. Pt. cont. to cough. Do you want NPO with BSS ST EVAL? Please. And CXR for later comparison? Bety [id number]
--- NOTE | 2020-04-09 14:09 | NUR ---
MD wants pt. NPO and BSS and CXR. Would like IV placed for IV fluids.
--- NOTE | 2020-04-09 14:30 | NUR ---
Radiologist called to state xray was completed and there "may be free air below diaphragm". Asked if this was concerning enough to notify MD and he stated that this RN needed to assess if pt. had any L- sided abdominal pain. Assessed pt. No pain anywhere on abdomen with or without palpation.
[2020-04-09 17:06] LABS: BASOPHILS # (AUTO) 0.1 X10'3 (0-0.2); BASOPHILS % (AUTO) 0.7 % (0-1); EOSINOPHILS # (AUTO) 0.1 X10'3 (0-0.9); EOSINOPHILS % (AUTO) 1.3 % (0-6); HEMATOCRIT 42.8 % (42.0-52.0); HEMOGLOBIN 13.9 g/dl (14.0-17.9); LYMPHOCYTES # (AUTO) 3.5 X10'3 (1.1-4.8); LYMPHOCYTES % (AUTO) 36.3 % (21-51); MEAN CORPUSCULAR HEMOGLOBIN 29.4 PG (27.0-31.0); MEAN CORPUSCULAR HGB CONC 32.6 g/dL (33.0-36.5); MEAN CORPUSCULAR VOLUME 90.2 FL (78-98); MEAN PLATELET VOLUME 9.4 FL (7.4-10.4); MONOCYTES # (AUTO) 0.8 X10'3 (0-0.9); MONOCYTES % (AUTO) 7.8 % (2-12); NEUTROPHILS # (AUTO) 5.2 X10'3 (1.8-7.7); NEUTROPHILS % (AUTO) 53.9 % (42-75); PLATELET COUNT 273 X10'3 (140-440); RED BLOOD COUNT 4.75 X10'6 (4.70-6.10); RED CELL DISTRIBUTION WIDTH 14.3 % (11.5-14.5); WHITE BLOOD COUNT 9.7 X10'3 (4.5-11.0)
[2020-04-09] MEDS: normal saline 1000ml 1,000 ML IV SCH (17:15)
--- NOTE | 2020-04-09 18:45 | NUR ---
PAGER ID: [phone] MESSAGE: García Jabier needs Ativan- no IV Ativan ordered only oral. Bety [id number]
[2020-04-09] MEDS ORDERED: LORazepam 2 mg/ml vial IV PRN (18:50)
[2020-04-09 19:03] VITALS: BP 147/102
[2020-04-09] MEDS: ondansetron/PF 4mg/2ml inj IV PRN (22:41)
[2020-04-10 00:13] VITALS: BP 160/82
[2020-04-10] MEDS: HYDROcodone/acetaminophen 10/325mg tab PO PRN ×2 (01:06→13:02)
[2020-04-10] MEDS: LORazepam 1 MG tablet PO PRN (01:06)
[2020-04-10] MEDS: normal saline 1000ml 1,000 ML IV SCH (04:23)
--- NOTE | 2020-04-10 06:25 | NUR ---
Patient in room [facility] 359B. I have received report from NATALIA MANTILLA and had the opportunity to ask questions and assume patient care.
[2020-04-10 06:51] VITALS: BP 109/64
[2020-04-10] MEDS: lactose-reduced food (Ensure High Protein) 237ml bottle PO SCH ×2 (07:30→18:04)
[2020-04-10 12:00] VITALS: BP 124/70
[2020-04-10] MEDS: levetiracetam 250mg tablet PO SCH (13:00)
[2020-04-10] MEDS: topiramate 100mg tablet PO SCH ×2 (13:01→19:39)
[2020-04-10] MEDS: atorvastatin 20mg tablet PO SCH (13:01)
[2020-04-10] MEDS: rivaroxaban 10mg tablet PO SCH (13:01)
[2020-04-10] MEDS: docusate sodium 100mg/10ml UD cup PO SCH ×2 (13:01→19:39)
[2020-04-10] MEDS: sertraline 50mg tablet PO SCH (13:01)
[2020-04-10] MEDS: QUEtiapine 25mg tablet PO SCH ×2 (13:01→19:39)
[2020-04-10] MEDS: tamsulosin 0.4mg capsule PO SCH (13:02)
[2020-04-10] MEDS: ondansetron/PF 4mg/2ml inj IV PRN (16:39)
--- NOTE | 2020-04-10 18:05 | NUR ---
Problems reprioritized. Patient report given, questions answered & plan of care reviewed with NATALIA MANTILLA.
[2020-04-10 18:30] VITALS: BP 135/89
[2020-04-11] MEDS: HYDROcodone/acetaminophen 10/325mg tab PO PRN (05:55)
[2020-04-11 07:11] VITALS: BP 110/61
[2020-04-11] MEDS: topiramate 100mg tablet PO SCH ×2 (07:20→21:23)
[2020-04-11] MEDS: docusate sodium 100mg/10ml UD cup PO SCH ×2 (07:20→21:22)
[2020-04-11] MEDS: sertraline 50mg tablet PO SCH (07:20)
[2020-04-11] MEDS: tamsulosin 0.4mg capsule PO SCH (07:20)
[2020-04-11] MEDS: ondansetron/PF 4mg/2ml inj IV PRN (07:20)
[2020-04-11] MEDS: rivaroxaban 10mg tablet PO SCH (07:20)
[2020-04-11] MEDS: levetiracetam 250mg tablet PO SCH (07:20)
[2020-04-11] MEDS: atorvastatin 20mg tablet PO SCH (07:20)
[2020-04-11] MEDS: QUEtiapine 25mg tablet PO SCH ×2 (07:20→21:22)
[2020-04-11] MEDS: lactose-reduced food (Ensure High Protein) 237ml bottle PO SCH ×2 (07:41→17:30)
[2020-04-11 11:41] VITALS: BP 110/79
--- NOTE | 2020-04-11 12:17 | NUR ---
Reassessment: Pt with suspected aspiration per MD note, aspirated on ground turkey 04/09 per RN notes. Pt was made NPO and ST was consulted. Pt s/p BSS 04/10 which was limited d/t pt c/o nausea however pt tolerated thin liquids and applesauce with no difficulty or overt s/s aspiration per ST note. Pt was placed on a pureed diet with thin liquids. Pt documented with 0% PO intake first meal on pureed diet, previously averaging 75-100% PO intake intake of meals receiving double protein BIDLD and ONS BIDBD. ST note indicates to further assess swallow if pt less nauseous. Noted that pt documented with nausea today and is receiving PRN Zofran. Pt currently documented as agitated and resistive to care per physical assessment. [facility] 04/09, receiving routine bowel care. Will continue to follow and monitor need for further nutrition intervention. Recommendations: 1) Continue carb controlled, pureed diet per ST recs 2) Double protein BIDLD; ensure high protein BIDBD 3) Routine bowel care 4) Scaled wts Addendum: 04/11/20 at [address] Amended: Links added.
--- NOTE | 2020-04-11 18:33 | NUR ---
Problems reprioritized. Patient report given, questions answered & plan of care reviewed with NATALIA Miranda.
--- NOTE | 2020-04-11 18:40 | NUR ---
Patient in room [facility]. I have received report from Anayeli FISHER and had the opportunity to ask questions and assume patient care.
[2020-04-12] VITALS: BP 138/73
[2020-04-12] MEDS: HYDROcodone/acetaminophen 10/325mg tab PO PRN (04:44)
--- NOTE | 2020-04-12 06:24 | NUR ---
Problems reprioritized. Patient report given, questions answered & plan of care reviewed with Nannette FISHER.
[2020-04-12] MEDS: lactose-reduced food (Ensure High Protein) 237ml bottle PO SCH ×3 (07:30→17:31)
[2020-04-12 07:45] VITALS: BP 111/72
[2020-04-12] MEDS: tamsulosin 0.4mg capsule PO SCH (08:47)
[2020-04-12] MEDS: sertraline 50mg tablet PO SCH (08:47)
[2020-04-12] MEDS: rivaroxaban 10mg tablet PO SCH (08:47)
[2020-04-12] MEDS: topiramate 100mg tablet PO SCH ×2 (08:47→20:58)
[2020-04-12] MEDS: atorvastatin 20mg tablet PO SCH (08:47)
[2020-04-12] MEDS: docusate sodium 100mg/10ml UD cup PO SCH ×2 (08:48→20:57)
[2020-04-12] MEDS: levetiracetam 250mg tablet PO SCH (08:48)
[2020-04-12] MEDS: QUEtiapine 25mg tablet PO SCH ×2 (08:48→20:57)
--- NOTE | 2020-04-12 18:27 | NUR ---
Problems reprioritized. Patient report given, questions answered & plan of care reviewed with NATALIA Miranda.
--- NOTE | 2020-04-12 18:45 | NUR ---
Patient in room [facility] 901. I have received report from Nannette FISHER and had the opportunity to ask questions and assume patient care.
[2020-04-12 23:51] VITALS: BP 111/71
--- NOTE | 2020-04-13 06:35 | NUR ---
Patient in room [facility]. I have received report from Ruth FISHER and had the opportunity to ask questions and assume patient care.
--- NOTE | 2020-04-13 06:45 | NUR ---
Problems reprioritized. Patient report given, questions answered & plan of care reviewed with Urbano FISHER.
[2020-04-13 07:00] VITALS: BP 123/71
[2020-04-13] MEDS: lactose-reduced food (Ensure High Protein) 237ml bottle PO SCH ×2 (09:00→17:30)
[2020-04-13] MEDS: docusate sodium 100mg/10ml UD cup PO SCH ×2 (09:27→19:23)
[2020-04-13] MEDS: tamsulosin 0.4mg capsule PO SCH (09:28)
[2020-04-13] MEDS: topiramate 100mg tablet PO SCH ×2 (09:28→19:25)
[2020-04-13] MEDS: QUEtiapine 25mg tablet PO SCH ×2 (09:28→19:24)
[2020-04-13] MEDS: levetiracetam 250mg tablet PO SCH (09:29)
[2020-04-13] MEDS: atorvastatin 20mg tablet PO SCH (09:29)
[2020-04-13] MEDS: sertraline 50mg tablet PO SCH (09:29)
[2020-04-13 11:00] VITALS: BP 94/75
[2020-04-13] MEDS: rivaroxaban 10mg tablet PO SCH (14:53)
[2020-04-13 18:00] VITALS: BP 124/76
--- NOTE | 2020-04-13 18:39 | NUR ---
Problems reprioritized. Patient report given, questions answered & plan of care reviewed with Ruth FISHER.
--- NOTE | 2020-04-13 18:43 | NUR ---
Patient in room [facility]. I have received report from Urbano FISHER and had the opportunity to ask questions and assume patient care.
--- NOTE | 2020-04-13 21:01 | NUR ---
Pt was inc large amt urine, bed and floor saturated, pt yelliing "You Bitch". Bed bath and linen change done. pt repositioned with pillows. Bed alarm on. Addendum: 04/13/20 at 2101 by Turner Maldonado RN Amended: Links added.
--- NOTE | 2020-04-13 21:02 | NUR ---
lotion to back, pt refuses any oral care. Addendum: 04/13/20 at 2103 by Turner Maldonado RN Amended: Links added.
[2020-04-14] VITALS: BP 131/63
--- NOTE | 2020-04-14 06:00 | NUR ---
Patient in room [facility]. I have received report from NATALIA Miranda and had the opportunity to ask questions and assume patient care.
--- NOTE | 2020-04-14 06:16 | NUR ---
Problems reprioritized. Patient report given, questions answered & plan of care reviewed with Rosalind FISHER.
[2020-04-14] MEDS: docusate sodium 100mg/10ml UD cup PO SCH ×2 (07:20→20:00)
[2020-04-14] MEDS: atorvastatin 20mg tablet PO SCH (07:21)
[2020-04-14] MEDS: levetiracetam 250mg tablet PO SCH (07:21)
[2020-04-14] MEDS: QUEtiapine 25mg tablet PO SCH ×2 (07:21→20:50)
[2020-04-14] MEDS: tamsulosin 0.4mg capsule PO SCH (07:21)
[2020-04-14] MEDS: sertraline 50mg tablet PO SCH (07:21)
[2020-04-14] MEDS: HYDROcodone/acetaminophen 10/325mg tab PO PRN (07:22)
[2020-04-14] MEDS: topiramate 100mg tablet PO SCH ×2 (07:22→20:50)
[2020-04-14] MEDS: rivaroxaban 10mg tablet PO SCH (07:29)
[2020-04-14] MEDS: lactose-reduced food (Ensure High Protein) 237ml bottle PO SCH ×2 (07:30→17:30)
[2020-04-14 08:00] VITALS: BP 126/78
[2020-04-14 11:00] VITALS: BP 125/73
[2020-04-14 18:00] VITALS: BP 130/67
--- NOTE | 2020-04-14 18:31 | NUR ---
Patient in room [facility]. I have received report from NATALIA Boyer and had the opportunity to ask questions and assume patient care.
--- NOTE | 2020-04-14 18:33 | NUR ---
Problems reprioritized. Patient report given, questions answered & plan of care reviewed with NATALIA Carcamo.
[2020-04-15 00:27] VITALS: BP 119/69
--- NOTE | 2020-04-15 06:26 | NUR ---
Problems reprioritized. Patient report given, questions answered & plan of care reviewed with NATALIA Benitez.
--- NOTE | 2020-04-15 06:30 | NUR ---
Patient in room [facility]. I have received report from Dona Segura and had the opportunity to ask questions and assume patient care.
[2020-04-15 07:00] VITALS: BP 119/70
[2020-04-15] MEDS: topiramate 100mg tablet PO SCH ×2 (07:35→21:32)
[2020-04-15] MEDS: QUEtiapine 25mg tablet PO SCH ×2 (07:35→21:32)
[2020-04-15] MEDS: levetiracetam 250mg tablet PO SCH (07:35)
[2020-04-15] MEDS: atorvastatin 20mg tablet PO SCH (07:35)
[2020-04-15] MEDS: tamsulosin 0.4mg capsule PO SCH (07:35)
[2020-04-15] MEDS: docusate sodium 100mg/10ml UD cup PO SCH ×2 (07:35→21:32)
[2020-04-15] MEDS: sertraline 50mg tablet PO SCH (07:36)
[2020-04-15] MEDS: rivaroxaban 10mg tablet PO SCH (07:36)
[2020-04-15] MEDS: lactose-reduced food (Ensure High Protein) 237ml bottle PO SCH ×2 (08:27→17:52)
[2020-04-15 11:32] VITALS: BP 114/67
[2020-04-15] MEDS: HYDROcodone/acetaminophen 10/325mg tab PO PRN (14:00)
[2020-04-15 18:00] VITALS: BP 106/65
--- NOTE | 2020-04-15 18:49 | NUR ---
Patient in room [facility]. I have received report from NATALIA Benitez and had the opportunity to ask questions and assume patient care.
--- NOTE | 2020-04-15 19:05 | NUR ---
Problems reprioritized. Patient report given, questions answered & plan of care reviewed with Scott FISHER.
[2020-04-16] VITALS: BP 125/75
--- NOTE | 2020-04-16 06:35 | NUR ---
Problems reprioritized. Patient report given, questions answered & plan of care reviewed with NATALIA Benitez.
--- NOTE | 2020-04-16 06:39 | NUR ---
Patient in room [facility] 359. I have received report from Dona FISHER and had the opportunity to ask questions and assume patient care.
[2020-04-16 07:00] VITALS: BP 108/74
[2020-04-16] MEDS: tamsulosin 0.4mg capsule PO SCH (07:23)
[2020-04-16] MEDS: docusate sodium 100mg/10ml UD cup PO SCH ×2 (07:23→21:37)
[2020-04-16] MEDS: QUEtiapine 25mg tablet PO SCH ×2 (07:24→21:37)
[2020-04-16] MEDS: atorvastatin 20mg tablet PO SCH (07:24)
[2020-04-16] MEDS: rivaroxaban 10mg tablet PO SCH (07:24)
[2020-04-16] MEDS: sertraline 50mg tablet PO SCH (07:24)
[2020-04-16] MEDS: levetiracetam 250mg tablet PO SCH (07:24)
[2020-04-16] MEDS: topiramate 100mg tablet PO SCH ×2 (07:24→21:37)
[2020-04-16] MEDS: lactose-reduced food (Ensure High Protein) 237ml bottle PO SCH ×2 (07:30→18:27)
--- NOTE | 2020-04-16 12:12 | NUR ---
Reassessment: Patient had very good appetite, was eating 100% until 04/09; 04/10 PO declined likely r/t nausea and change in food texture; appetite now improving and increasing intake back to average of 75-100% with 75% PO of ONS. patient was placed on pureed diet d/t suspected aspiration; aspirated on ground turkey 04/09 per RN notes. Pt s/p BSS 04/10 which was limited d/t pt c/o nausea however pt tolerated thin liquids and applesauce with no difficulty or overt s/s aspiration per ST note. ST note indicates to further assess swallow if pt less nauseous. Pt currently documented as agitated and resistive to care per physical assessment. [facility] 04/14, receiving routine bowel care. Will continue to follow and monitor need for further nutrition intervention. Recommendations: 1) Continue carb controlled, pureed diet per ST recs 2) Double protein BIDLD; ensure high protein BIDBD 3) Routine bowel care 4) Scaled wts Addendum: 04/16/20 at [address] Amended: Links added.
--- NOTE | 2020-04-16 18:56 | NUR ---
Problems reprioritized. Patient report given, questions answered & plan of care reviewed with Armond FISHER.
[2020-04-16 20:00] VITALS: BP 118/54
[2020-04-17] VITALS: BP 111/70
--- NOTE | 2020-04-17 06:30 | NUR ---
Patient in room [facility]. I have received report from ANNALEE FISHER and had the opportunity to ask questions and assume patient care.
[2020-04-17 07:00] VITALS: BP 129/71
[2020-04-17] MEDS: tamsulosin 0.4mg capsule PO SCH (07:22)
[2020-04-17] MEDS: levetiracetam 250mg tablet PO SCH (07:22)
[2020-04-17] MEDS: docusate sodium 100mg/10ml UD cup PO SCH ×2 (07:22→20:01)
[2020-04-17] MEDS: rivaroxaban 10mg tablet PO SCH (07:23)
[2020-04-17] MEDS: QUEtiapine 25mg tablet PO SCH ×2 (07:23→20:01)
[2020-04-17] MEDS: topiramate 100mg tablet PO SCH ×2 (07:23→20:01)
[2020-04-17] MEDS: sertraline 50mg tablet PO SCH (07:23)
[2020-04-17] MEDS: atorvastatin 20mg tablet PO SCH (07:23)
[2020-04-17] MEDS: lactose-reduced food (Ensure High Protein) 237ml bottle PO SCH (07:40)
[2020-04-17] MEDS: HYDROcodone/acetaminophen 5mg/325mg tablet PO PRN (10:21)
[2020-04-17 11:00] VITALS: BP 127/73
[2020-04-17 18:00] VITALS: BP 113/65
--- NOTE | 2020-04-17 18:36 | NUR ---
Problems reprioritized. Patient report given, questions answered & plan of care reviewed with ANNALEE FISHER.
[2020-04-18] VITALS: BP 120/74
--- NOTE | 2020-04-18 06:30 | NUR ---
Patient in room [facility]. I have received report from Armond FISHER and had the opportunity to ask questions and assume patient care.
[2020-04-18 07:08] VITALS: BP 102/63
[2020-04-18] MEDS: docusate sodium 100mg/10ml UD cup PO SCH ×2 (08:57→21:37)
[2020-04-18] MEDS: topiramate 100mg tablet PO SCH ×2 (08:58→21:37)
[2020-04-18] MEDS: sertraline 50mg tablet PO SCH (08:58)
[2020-04-18] MEDS: tamsulosin 0.4mg capsule PO SCH (08:58)
[2020-04-18] MEDS: QUEtiapine 25mg tablet PO SCH ×2 (08:58→21:36)
[2020-04-18] MEDS: atorvastatin 20mg tablet PO SCH (08:58)
[2020-04-18] MEDS: levetiracetam 250mg tablet PO SCH (08:58)
[2020-04-18] MEDS: rivaroxaban 10mg tablet PO SCH (09:05)
[2020-04-18 12:34] VITALS: BP 104/66
[2020-04-18] MEDS ORDERED: RIVA10TA PO (16:04)
--- NOTE | 2020-04-18 18:35 | NUR ---
Problems reprioritized. Patient report given, questions answered & plan of care reviewed with Armond FISHER.
[2020-04-18 20:00] VITALS: BP 106/63
[2020-04-19] VITALS: BP 116/67
--- NOTE | 2020-04-19 03:14 | NUR ---
Patient in room [facility]. I have received report from NATALIA Leahy and had the opportunity to ask questions and assume patient care.
--- NOTE | 2020-04-19 06:04 | NUR ---
Problems reprioritized. Patient report given, questions answered & plan of care reviewed with NATALIA Mcnamara.
--- NOTE | 2020-04-19 06:46 | NUR ---
Patient in room [facility]. I have received report from Radha Herrera RN and had the opportunity to ask questions and assume patient care.
[2020-04-19 07:00] VITALS: BP 124/69
[2020-04-19] MEDS: rivaroxaban 10mg tablet PO SCH (08:38)
[2020-04-19] MEDS: QUEtiapine 25mg tablet PO SCH (08:38)
[2020-04-19] MEDS: topiramate 100mg tablet PO SCH (08:39)
[2020-04-19] MEDS: atorvastatin 20mg tablet PO SCH (08:39)
[2020-04-19] MEDS: levetiracetam 250mg tablet PO SCH (08:39)
[2020-04-19] MEDS: sertraline 50mg tablet PO SCH (08:40)
[2020-04-19] MEDS: tamsulosin 0.4mg capsule PO SCH (08:40)
[2020-04-19] MEDS: docusate sodium 100mg/10ml UD cup PO SCH (08:40)
--- NOTE | 2020-04-19 10:10 | NUR ---
[facility]. report called to Denise BRYANT. IV removed prior d/c with cannula intact. [facility]
== END 2020-04-19 10:09 | DRG 480 ==
LOC: ER 08:54 → ED HOLD 12:54 → SUR 3N 16:31 → ORTHO 4S 03-14 00:40 → SUR 3N 03-18 14:20
PROVIDERS: ADMIT Internal Medicine; ATTEND Internal Medicine
PROC: 0QH734Z Insertion of Internal Fixation Device into Left Upper Femur, Percutaneous Approach (ICD-10-PCS; principal; 2020-02-18 15:02)
DX: S72.002A Fracture of unspecified part of neck of left femur, initial encounter for closed fracture (principal); E43 Unspecified severe protein-calorie malnutrition; M97.02XA Periprosthetic fracture around internal prosthetic left hip joint, initial encounter; D62 Acute posthemorrhagic anemia; D72.829 Elevated white blood cell count, unspecified; Z68.26 Body mass index [BMI] 26.0-26.9, adult; F03.90 Unspecified dementia, unspecified severity, without behavioral disturbance, psychotic disturbance, mood disturbance, and anxiety; N40.0 Benign prostatic hyperplasia without lower urinary tract symptoms; E87.6 Hypokalemia; E11.9 Type 2 diabetes mellitus without complications; E78.5 Hyperlipidemia, unspecified; W01.0XXA Fall on same level from slipping, tripping and stumbling without subsequent striking against object, initial encounter; E86.0 Dehydration; G40.909 Epilepsy, unspecified, not intractable, without status epilepticus; H54.8 Legal blindness, as defined in USA; I10 Essential (primary) hypertension; Y93.01 Activity, walking, marching and hiking; Z79.82 Long term (current) use of aspirin; Z87.820 Personal history of traumatic brain injury; Z98.2 Presence of cerebrospinal fluid drainage device; Y92.098 Other place in other non-institutional residence as the place of occurrence of the external cause; Y99.8 Other external cause status; Z88.8 Allergy status to other drugs, medicaments and biological substances
CPT/HCPCS: 36415; 71045; 72100; 72131; 73502; 73522; 73552; 73700; 76000; 80048; 80053; 82948; 83036; 83735; 84132; 85025; 85610; 85730; 86885; 86900; 86901; 87081; 87635; 92508; 92616; 93005; 94640; 94760; 97110; 97112; 97116; 97161; 97530; 97535; 99285; A4618; A6455; A7000; C1713; G0378; J0690; J0696; J1644; J1650; J1815; J2060; J2175; J2270; J2405; J2704; J3010; J7030; J7120

== ENCOUNTER 2021-02-05 18:06 | Emergency (ER) | payer MEDICARE, MEDICAID ==
[~2021-02-05] VITALS: Ht 167.6 cm; Wt 72.7 kg
[~2021-02-05 18:06] MED LIST changes: +ATOR40TA PO; -DIVA125C2 PO; -DOCU-28 PO; +EMPA10TA PO; +FLO0.4C PO; +LEVE500T PO; -POLY119P2 PO; +QUET50TA22 PO; +RIVA10TA PO; +SERT-434 PO
--- NOTE | 2021-02-05 19:02 | NUR ---
Patricia, pt's conservator and mother, has been updated on discharge status pending transportation.
--- NOTE | 2021-02-05 19:37 | NUR ---
[employer] transporting pt right now via wheelchair.
[2021-02-05 19:41] VITALS: BP 110/52
== END 2021-02-05 19:44 | disposition home or self-care (01) ==
LOC: ER 18:07
DX: S06.9X0A Unspecified intracranial injury without loss of consciousness, initial encounter (principal); Z86.69 Personal history of other diseases of the nervous system and sense organs; Z98.890 Other specified postprocedural states; Z88.8 Allergy status to other drugs, medicaments and biological substances; Z79.899 Other long term (current) drug therapy; W05.0XXA Fall from non-moving wheelchair, initial encounter; Y93.89 Activity, other specified; Y92.89 Other specified places as the place of occurrence of the external cause; Y99.8 Other external cause status
CPT/HCPCS: 82948; 99284